=== PATIENT | male | born 1970 | race Caucasian/White ===

== ENCOUNTER 2023-05-05 18:51 | Emergency (ER) | payer BC, SELFPAY ==
[2023-05-05 19:00] VITALS: BP 168/93; PULSE 86; RESP 18; TEMP 36.8; O2SAT 97
--- NOTE | 2023-05-05 19:15 | ED.URI ---
HPI - URI/Sore Throat General Chief Complaint: Dizziness Stated Complaint: Dizziness,Sore Throat,Upset Stomach Time Seen by Provider: 05/05/23 19:15 Source: patient Mode of arrival: ambulatory Limitations: no limitations History of Present Illness HPI Narrative: 53-year-old male with history of prediabetes, hypertension, thoracic aortic aneurysm and obstructive sleep apnea presented for complaint of nausea and dizziness today. Endorses the dizziness is worse with moving his head, and feels off balance with walking. Describes the dizziness as room spinning sensation. He denies a sensation that is going to pass out. Endorses sore throat, sinus congestion and drainage for at least 2 weeks. He denies associated chest pain, palpitations, shortness of breath or chest tightness, vomiting, diarrhea, fevers or chills. Took an antiemetic prior to arrival, reports it is starting to wear off but did improve symptoms temporarily. Did not take bp meds or eaten today due to nausea. Of note, pt's father last night. Related Data Home Medications Medication Instructions Recorded Confirmed aspirin 81 mg tablet,delayed 81 mg PO DAILY 05/13/22 03/10/23 release (Adult Low Dose Aspirin) cholecalciferol (vitamin D3) 50 50 mcg PO DAILY 05/13/22 05/05/23 mcg (2,000 unit) capsule fluticasone propionate 50 2 spray intranasal DAILY 05/13/22 05/05/23 mcg/actuation nasal spray,suspension syringe with needle 3 mL 25 gauge 05/05/23 05/05/23 x 1 (BD Luer-Melanie Syringe) Allergies Allergy/AdvReac Type Severity Reaction Status Date / Time No Known Allergies Allergy Unverified 03/10/23 10:31 Review of Systems Review of Systems: CONSTITUTIONAL: Denies body aches, fever, chills, or sweats. EYES: Denies visual changes, redness, or discharge. ENT: reports rhinorrhea, congestion, sore throat, denies otalgia. CARDIOVASCULAR: Denies chest pain, palpitations, or edema. RESPIRATORY: Denies cough or dyspnea. GASTROINTESTINAL: Reports nausea and decreased appetite denies abdominal pain, vomiting, or diarrhea. GENITOURINARY: Denies dysuria or hematuria. SKIN: Denies rash, itching, or wounds. MUSCULOSKELETAL: Denies back pain, joint pain, or myalgia. NEUROLOGIC: Reports dizziness denies headache, numbness, tingling, or weakness. All systems reviewed & are unremarkable except as noted in HPI and below PMFSH Past Medical History Medical History (Updated 05/05/23 @ 19:45 by Candida Cortez APRN) Allergies Colon polyps tubular adenoma Dyslipidemia Hx of nephrolithotomy with removal of calculi Hypertension Hypogonadism in male ROSARIO (obstructive sleep apnea) Prediabetes Thoracic aortic aneurysm 4.3 x 4.3 cm Surgical History Surgical History History of colonoscopy Family History Family History Mother Breast cancer Diabetes mellitus Father Hypertension Social History Social History Smoking status: Never smoker Alcohol intake: current Substance use: never Lack of Transportation: No Lack of Food: Never True Current Housing: I Have Housing Concerned About Future Housing: No Difficulty Paying Gas/Electric Bills: No Difficulty Paying for Meds: No Currently Unemployed: No Education: Associate Degree Living arrangements: with family Occupation/Education: occupation Additional occupation/education comments: cadd technician Agree to blood products: Yes Comments At time of signature, I have reviewed and agree with nursing past medical, surgical, social and family history unless otherwise noted. Please see nursing chart for further information. There is no relevant family history pertinent to the presenting complaint Exam Narrative: GENERAL: Well-appearing, and in no acute distress. HEAD: Normocephalic, atraumatic. EYES
--- NOTE | 2023-05-05 19:26 | ECG_ITS ---
Measurements Intervals [place] Rate: 87 P: 33 [place]: 167 QRS: 31 QRSD: 92 T: 28 QT: 334 QTc: 403 Interpretive Statements SINUS RHYTHM NORMAL ELECTROCARDIOGRAM NO PREVIOUS ECG AVAILABLE FOR COMPARISON Electronically Signed On 05-06-2023 7:41:55 CDT by Abdelrahman Sloan M.D.
== END 2023-05-05 19:58 | disposition home or self-care (01) ==
PROVIDERS: Emergency Provider Nurse Practitioner Family; PCP Family Medicine
DX: H81.10 Benign paroxysmal vertigo, unspecified ear (principal); J06.9 Acute upper respiratory infection, unspecified; E78.5 Hyperlipidemia, unspecified; I10 Essential (primary) hypertension; R73.03 Prediabetes; Z79.82 Long term (current) use of aspirin
CPT/HCPCS: 93005; 99213; G0463

== ENCOUNTER 2024-09-20 09:39 | Observation (INO) | payer BC, SELFPAY ==
--- NOTE | ~2024-09-20 | XR_ITS ---
EXAMINATION: XR retrograde pyelo w/stent RT DATE: 09/21/2024 11:02 INDICATION: Cystoscopy and right retrograde pyelogram. TECHNIQUE: 4 fluoroscopic images of the abdomen and pelvis were obtained during procedure performed christ Lee. Radiologist was not present for the imaging or procedure. The amount of fluoroscopy t noel used during this procedure was 0.2 minutes. Total DAP was 0.462 mGym^2 COMPARISON: None. FINDINGS: Images demonstrate cannulation and retrograde contrast injection into the right ureter and advancemen t of a wire into the upper pole calyx of the right kidney. Final image demonstrates a right internal ureteral stent the proximal tip of which is difficult to distinguish due to the injected contrast. IMPRESSION: 1. Fluoroscopy utilized for right retrograde pyelogram and internal ureteral stent placement. See pro cedure note for further detail. Reviewed, dictated and finalized at location B. NT PROFESSIONAL IMPRESSION: 1. Fluoroscopy utilized for right retrograde pyelogram and internal ureteral st ent placement. See procedure note for further detail.
--- NOTE | ~2024-09-20 | CT_ITS ---
CLINICAL INDICATION: Right flank pain COMPARISON: 08/10/2016. TECHNIQUE: Multiple contiguous axial images of the abdomen and pelvis were performed without the admi nistration of intravenous contrast The dose-length product (DLP) was 1631.35 mGy-cm. Automated exposure control and iterative reconstruction technique were employed. FINDINGS/OBSERVATIONS: Visualized lower thorax: Calcified granuloma within the right lung base. 4 mm nodule within the left lower lobe, unchanged from 2016. The remainder of the bilateral lung bases are otherwise clear. The heart is of normal size, without pericardial effusion. Liver: The liver demonstrates homogeneous attenuation and is enlarged measuring 22 cm in longitudinal dimens ion. Gallbladder and biliary system: The gallbladder is only minimally distended, and otherwise unremarkable. Pancreas: Limited evaluation of the pancreas secondary to the lack of intravenous contrast. Spleen: The spleen demonstrates homogeneous attenuation and is not enlarged measuring 14 cm in longitudinal d imension. Kidneys: Right sided hydroureteronephrosis extending to the right ureterovesicular junction where a 5 mm stone is identified. 3 mm nonobstructing calculus within the right kidney. 5 mm nonobstructing calculus within the left kidney. Adrenal glands: Unremarkable. Gastrointestinal tract: Colonic diverticulosis without surrounding inflammatory change. Appendix: The air-filled appendix is of normal caliber (axial series, images 122 -135). Vasculature: Unremarkable. Lymph nodes: No pathologically enlarged or morphologically suspicious lymph nodes within the retroperitoneum or at the root of the mesentery. Pelvic structures: The bladder is only minimally distended, and otherwise unremarkable (except for the obstructing calcu henrik in the right UVJ). The prostate gland is not enlarged. Body wall and musculoskeletal: Small fat-containing umbilical hernia. Trace degenerative disease within the lower thoracic and lumbosacral spines with osteophyte formation and disc space narrowing. IMPRESSION: Mild right-sided hydroureteronephrosis secondary to a 5 mm stone at the right UVJ. Hepatosplenomegaly. Reviewed, dictated and finalized at location A. ER CURER IMPRESSION: Mild right-sided hydroureteronephrosis secondary to a 5 mm stone at the right U VJ. Hepatosplenomegaly.
--- NOTE | ~2024-09-20 | XR_ITS ---
CHEST RADIOGRAPH, PA AND LATERAL CLINICAL HISTORY: cough, CONGESTION . COMPARISON: None available TECHNIQUE: PA and lateral views of the chest. FINDINGS The cardiomediastinal silhouette is unremarkable. Calcified granuloma within the base, seen on lateral view. The remainder of the lungs are clear Visualized osseous structures and soft tissues are unremarkable. IMPRESSION: No focal infiltrate or effusion. Reviewed, dictated and finalized at location A. S MANAGER
[2024-09-20 10:08] VITALS: BP 167/94; PULSE 91; RESP 18; TEMP 37.6; O2SAT 98
--- NOTE | 2024-09-20 12:47 | ED.MALEGU ---
HPI - Male Genitourinary General Chief complaint: Urogenital-Male <Mary Luna PA-C - Last Filed: 09/20/24 12:49> Stated complaint: R KIDNEY STONE X7D <Mary Luna PA-C - Last Filed: 09/20/24 12:49> Time Seen by Provider: 09/20/24 13:37 <Mary Luna PA-C - Last Filed: 09/20/24 12:49> Focused HPI: 54-year-old male history of hyperlipidemia, gout, hypertension presents to the emergency department for right flank pain for 5 days. Patient states his symptoms started with cough, congestion, body aches, chills. Began developing pain in his right flank 5 days ago. He has a history kidney stones and is concerned he has a kidney stone. Reports history of fevers at home but is unsure if this is related to cold symptoms versus kidney stone. Denies dysuria or hematuria. His urologist is Dr. Lee. GENERAL: Well-appearing, well-nourished, and in no acute distress. HEAD: Normocephalic, atraumatic. CHEST: Clear to auscultation. ?No respiratory distress. HEART: Regular rate and rhythm.? NEURO: ?Alert and oriented x3. Patient screened in triage and initial orders placed.? ?Additional care and disposition to be based upon?diagnostic testing and treatment. <Mary Luna PA-C - Last Filed: 09/20/24 12:49> History of Present Illness HPI Narrative: Agree with HPI. Reports low-grade temp. No runny nose or sore throat or productive cough. Feels like previous stone. <Donnie Carrizales MD - Last Filed: 09/20/24 19:32> Related Data Home medications: Home Medications ?Medication ?Instructions ?Recorded ?Confirmed ?Last Taken ?Type aspirin 81 mg tablet,delayed 81 mg PO DAILY 05/13/22 10/28/23 Unknown History release (Adult Low Dose Aspirin) cholecalciferol (vitamin D3) 50 50 mcg PO DAILY 05/13/22 10/28/23 Unknown History mcg (2,000 unit) capsule fluticasone propionate 50 2 spray intranasal DAILY 05/13/22 10/28/23 Unknown History mcg/actuation nasal spray,suspension <Mary Luna PA-C - Last Filed: 09/20/24 12:49> Allergies/Adverse reactions: Allergies Allergy/AdvReac Type Severity Reaction Status Date / Time No Known Allergies Allergy Verified 09/20/24 09:40 <Mary Luna PA-C - Last Filed: 09/20/24 12:49> Review of Systems Review of Systems: All systems reviewed & are unremarkable except as noted in HPI and below <Donnie Carrizales MD - Last Filed: 09/20/24 19:32> Constitutional: Constitutional: Reports no additional constitutional complaints <Donnie Carrizales MD - Last Filed: 09/20/24 19:32> Cardiovascular: Cardiovascular: Reports no additional cardiovascular complaints <Donnie Carrizales MD - Last Filed: 09/20/24 19:32> Respiratory: Respiratory: Reports no additional respiratory complaints <Donnie Carrizales MD - Last Filed: 09/20/24 19:32> Gastrointestinal: Gastrointestinal: Reports no additional gastrointestinal complaints <Donnie Carrizales MD - Last Filed: 09/20/24 19:32> [facility] Past Medical History Medical History: Medical History Allergies Colon polyps tubular adenoma Dyslipidemia Hx of nephrolithotomy with removal of calculi Hypertension Hypogonadism in male ROSARIO (obstructive sleep apnea) Prediabetes Thoracic aortic aneurysm 4.3 x 4.3 cm <Mary Luna PA-C - Last Filed: 09/20/24 12:49> Surgical History Surgical History: Surgical History History of colonoscopy <Mary Luna PA-C - Last Filed: 09/20/24 12:49> Family History Family History: Family History Mother Breast cancer Diabetes mellitus Father Hypertension <Mary Luna PA-C - Last Filed: 09/20/24 12:49> Social History Social History: Social History Smoking status: Never smoker Alcohol intake: current Substance use: never Lack of Transportation: No Lack of Food: Never True Current Housing: I Have Housing Concerned About Future Housing: No Difficulty Paying Gas/Electric Bills: No Difficulty Paying for Meds: No Currently Unemployed: No Education: Associate Degree Living arrangements: with family Occupation/Education: occupation 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 HEAD: Normocephalic, atraumatic. ENT: Mucous membranes moist. NECK: Supple. CHEST: Clear to auscultation. No respiratory distress. HEART: Regular rate and rhythm. Normal peripheral pulses. ABDOMEN: Soft, nontender, nondistended. EXTREMITIES: Normal range of motion. No edema. SKIN: Warm, dry, no rash. NEURO: Alert and oriented x3. PSYCH: Normal mood and affect. <Donnie Carrizales MD - Last Filed: 09/20/24 19:32> Course Course Emergency Course: Resting comfortably. Has not passed the stone. Has received IV fluids pain medication. Patient with doubling of creatinine. Urology consulted. Admit for observation. NPO at midnight. He febrile and urine without infection. Flomax ordered. <Donnie Carrizales MD - Last Filed: 09/20/24 19:32> Vital Signs Vital signs: Vital Signs Temperature 99.7 F H 09/20/24 10:08 Pulse Rate 91 09/20/24 10:08 Respiratory Rate 18 09/20/24 10:08 Blood Pressure 167/94 H 09/20/24 10:08 Pulse Oximetry 98 09/20/24 10:08 Temperature 99.7 F H 09/20/24 10:08 Pulse Rate 79 09/20/24 19:25 Respiratory Rate 16 09/20/24 19:25 Blood Pressure 147/87 H 09/20/24 19:25 Pulse Oximetry 98 09/20/24 19:25 <Mary Luna PA-C - Last Filed: 09/20/24 12:49> Vital Signs Temperature 99.7 F H 09/20/24 10:08 Pulse Rate 91 09/20/24 10:08 Respiratory Rate 18 09/20/24 10:08 Blood Pressure 167/94 H 09/20/24 10:08 Pulse Oximetry 98 09/20/24 10:08 Temperature 99.7 F H 09/20/24 10:08 Pulse Rate 79 09/20/24 19:25 Respiratory Rate 16 09/20/24 19:25 Blood Pressure 147/87 H 09/20/24 19:25 Pulse Oximetry 98 09/20/24 19:25 <Donnie Carrizales MD - Last Filed: 09/20/24 19:32> MDM - Male Genitourinary Lab Data Result diagrams: 09/20/24 13:25 09/20/24 13:25 <Mary Luna PA-C - Last Filed: 09/20/24 12:49> Labs: Lab Results 09/20/24 Range/Units 13:25 WBC 10.8 H (4.5-10.0) K/mm3 RBC 6.00 (4.6-6.20) M/mm3 Hgb 16.3 (14.0-18.0) g/dL Hct 50.5 (42.0-52.0) % MCV 84.2 (80-100) fl MCH 27.2 (26-34) pg MCHC 32.3 (32-36) g/dl RDW 15.4 H (11.5-14.5) % Plt Count 249 (150-375) k/mm3 MPV 10.3 (7.4-10.4) fl Immature Gran % (Auto) 0.3 (0-0.5) % Neut % (Auto) 74.2 H (45.5-73.1) % Lymph % (Auto) 9.0 L (18.3-44.2) % [place] % (Auto) 12.7 H (2.6-8.5) % Eos % (Auto) 3.1 (0-4.4) % Baso % (Auto) 0.7 (0.2-1.2) % Lymph # (Auto) 0.97 (0.9-3.2) K/mm3 [place] # (Auto) 1.4 H (0.1-0.6) K/mm3 Eos # (Auto) 0.3 (0-0.3) K/mm3 Baso # (Auto) 0.1 (0.0-0.1) K/mm3 Abs Immat Gran (auto) 0.03 (0.00-0.031) K/mm3 Absolute Neuts (auto) 8.0 H (1.3-6.7) K/mm3 Absolute Nucleated RBC 0.000 (0.0-0.012) K/mm3 Nucleated RBC % 0.0 (0.0-0.2) % Sodium 141 (137-145) mmol/L Potassium 4.6 (3.4-5.0) mmol/L Chloride 110 H (98-107) mmol/L Carbon Dioxide 23 (22-30) mmol/L Anion Gap 8 (4-12) mmol/L BUN 24 H (9-20) mg/dL Creatinine 2.30 H (0.7-1.3) mg/dL Estim Creat Clear Calc 46 ml/min Estimated GFR 30 L (59 - ) Glucose 104 (65-110) mg/dL Calcium 9.5 (8.4-10.2) mg/dL Total Bilirubin 0.6 (0.2-1.3) mg/dL AST 39 (17-59) U/L ALT 70 H (6-50) U/L Alkaline Phosphatase 73 (38-126) U/L Total Protein 8.0 (6.3-8.2) g/dL Albumin 4.3 (3.5-5.1) g/dL Lipase 127 (23-300) U/L Urine Color Yellow (Yellow) Urine Appearance Clear (Clear) Urine pH 5.5 (5.0-9.0) Ur Specific [place] 1.017 (1.001-1.035) Urine Protein Negative (Negative) mg/dL Urine Glucose (UA) Negative (Negative) mg/dL Urine Ketones Negative (Negative) mg/dL Ur Blood (Man) 3+ H (Negative) Urine Nitrate Negative (Negative) Urine Bilirubin Negative (Negative) Urine Urobilinogen 0.2 (<2.0) mg/dL Leukocyte Esterase Rfl Trace H (Negative) LD/UL Urine RBC 21-50 H (0-2) /hpf Urine WBC 0-5 (0-3) /hpf Ur Squamous Epith Cells None seen (Few) /hpf Urine Bacteria None seen /hpf Urine Casts 3-5 Influenza A (RT-PCR) Negative (Negative) Influenza B (RT-PCR) Negative (Negative) RSV (RT-PCR) Negative (Negative) SARS-CoV-2 RNA (RT-PCR) Negative (Negative) <Mary Luna PA-C - Last Filed: 09/20/24 12:49> Lab Results 09/20/24 Range/Units 13:25 WBC 10.8 H (4.5-10.0) K/mm3 RBC 6.00 (4.6-6.20) M/mm3 Hgb 16.3 (14.0-18.0) g/dL Hct 50.5 (42.0-52.0) % MCV 84.2 (80-100) fl MCH 27.2 (26-34) pg MCHC 32.3 (32-36) g/dl RDW 15.4 H (11.5-14.5) % Plt Count 249 (150-375) k/mm3 MPV 10.3 (7.4-10.4) fl Immature Gran % (Auto) 0.3 (0-0.5) % Neut % (Auto) 74.2 H (45.5-73.1) % Lymph % (Auto) 9.0 L (18.3-44.2) % [place] % (Auto) 12.7 H (2.6-8.5) % Eos % (Auto) 3.1 (0-4.4) % Baso % (Auto) 0.7 (0.2-1.2) % Lymph # (Auto) 0.97 (0.9-3.2) K/mm3 [place] # (Auto) 1.4 H (0.1-0.6) K/mm3 Eos # (Auto) 0.3 (0-0.3) K/mm3 Baso # (Auto) 0.1 (0.0-0.1) K/mm3 Abs Immat Gran (auto) 0.03 (0.00-0.031) K/mm3 Absolute Neuts (auto) 8.0 H (1.3-6.7) K/mm3 Absolute Nucleated RBC 0.000 (0.0-0.012) K/mm3 Nucleated RBC % 0.0 (0.0-0.2) % Sodium 141 (137-145) mmol/L Potassium 4.6 (3.4-5.0) mmol/L Chloride 110 H (98-107) mmol/L Carbon Dioxide 23 (22-30) mmol/L Anion Gap 8 (4-12) mmol/L BUN 24 H (9-20) mg/dL Creatinine 2.30 H (0.7-1.3) mg/dL Estim Creat Clear Calc 46 ml/min Estimated GFR 30 L (59 - ) Glucose 104 (65-110) mg/dL Calcium 9.5 (8.4-10.2) mg/dL Total Bilirubin 0.6 (0.2-1.3) mg/dL AST 39 (17-59) U/L ALT 70 H (6-50) U/L Alkaline Phosphatase 73 (38-126) U/L Total Protein 8.0 (6.3-8.2) g/dL Albumin 4.3 (3.5-5.1) g/dL Lipase 127 (23-300) U/L Urine Color Yellow (Yellow) Urine Appearance Clear (Clear) Urine pH 5.5 (5.0-9.0) Ur Specific [place] 1.017 (1.001-1.035) Urine Protein Negative (Negative) mg/dL Urine Glucose (UA) Negative (Negative) mg/dL Urine Ketones Negative (Negative) mg/dL Ur Blood (Man) 3+ H (Negative) Urine Nitrate Negative (Negative) Urine Bilirubin Negative (Negative) Urine Urobilinogen 0.2 (<2.0) mg/dL Leukocyte Esterase Rfl Trace H (Negative) LD/UL Urine RBC 21-50 H (0-2) /hpf Urine WBC 0-5 (0-3) /hpf Ur Squamous Epith Cells None seen (Few) /hpf Urine Bacteria None seen /hpf Urine Casts 3-5 Influenza A (RT-PCR) Negative (Negative) Influenza B (RT-PCR) Negative (Negative) RSV (RT-PCR) Negative (Negative) SARS-CoV-2 RNA (RT-PCR) Negative (Negative) <Donnie Carrizales MD - Last Filed: 09/20/24 19:32> Imaging Data Radiologist's impression: ITS Impressions Abdomen/Pelvis CT 09/20/24 13:08 IMPRESSION: Mild right-sided hydroureteronephrosis secondary to a 5 mm stone at the right UVJ. Hepatosplenomegaly. Chest X-Ray 09/20/24 13:22 IMPRESSION: No focal infiltrate or effusion. <Donnie Carrizales MD - Last Filed: 09/20/24 19:32> Discharge Plan Discharge Clinical Impression: Ureterolithiasis <Mary Luna PA-C - Last Filed: 09/20/24 12:49> Patient Disposition: Still a Patient <Mary Luna PA-C - Last Filed: 09/20/24 12:49> Condition: Stable <Mary Luna PA-C - Last Filed: 09/20/24 12:49>
[2024-09-20] MEDS: ACETAMINOPHEN 500 MG TABLET 1000 MG PO (13:17)
[2024-09-20 13:34] LABS: Basophils Absolute Auto 0.1 K/mm3 (0.0-0.1); Basophils Percent Auto 0.7 % (0.2-1.2); Eosinophils Absolute Auto 0.3 K/mm3 (0-0.3); Eosinophils Percent Auto 3.1 % (0-4.4); Hematocrit 50.5 % (42.0-52.0); Hemoglobin 16.3 g/dL (14.0-18.0); Immature Granulocyte Absolute 0.03 K/mm3 (0.00-0.031); Immature Granulocyte Percent A 0.3 % (0-0.5); Lymphocytes Absolute Auto 0.97 K/mm3 (0.9-3.2); Mean Corpuscular HGB Conc 32.3 g/dl (32-36); Mean Corpuscular Hemoglobin 27.2 pg (26-34); Mean Corpuscular Volume 84.2 fl (80-100); Mean Platelet Volume 10.3 fl (7.4-10.4); Monocytes Absolute Auto 1.4 K/mm3 (0.1-0.6); Monocytes Percent Auto 12.7 % (2.6-8.5); Neutrophils Percent Auto 74.2 % (45.5-73.1); Platelet Count Result 249 k/mm3 (150-375); Red Cell Distribution Width 15.4 % (11.5-14.5); White Blood Count 10.8 K/mm3 (4.5-10.0)
[2024-09-20 13:40] LABS: Add Urine Microscopic? YES; Appearance Urine Clear (Clear); Bacteria Urine None Seen /hpf; Bilirubin Urine Negative (Negative); Blood Urine 3+ (Negative); Color Urine Yellow (Yellow); Glucose Urine UA Negative (Negative); Ketones Urine Negative (Negative); Leukocyte Esterase Ur Trace LEU/UL (Negative); Nitrate Urine Negative (Negative); Protein Urine Negative (Negative); RBC Urine 21-50 /hpf (0-2); Specific Grav Ur 1.017 (1.001-1.035); Squamous Epithelial Cell Urine None Seen /hpf (Few); Urobilinogen Urine 0.2 mg/dL (<2.0); WBC Urine 0-5 /hpf (0-3); pH Urine 5.5 (5.0-9.0)
[2024-09-20 13:43] LABS: Alanine Aminotransferase 70 U/L (6-50); Albumin Level 4.3 g/dL (3.5-5.1); Alkaline Phosphatase 73 U/L (38-126); Anion Gap 8 mmol/L (4-12); Aspartate Amino Transferase 39 U/L (17-59); Bilirubin,Total 0.6 mg/dL (0.2-1.3); Blood Urea Nitrogen 24 mg/dL (9-20); Calcium 9.5 mg/dL (8.4-10.2); Carbon Dioxide 23 mmol/L (22-30); Chloride 110 mmol/L (98-107); Estimated CRCL calculation 46 ml/min; Estimated Glomerular Filt Rate 30; Glucose 104 mg/dL (65-110); Lipase 127 U/L (23-300); Potassium 4.6 mmol/L (3.4-5.0); Sodium 141 mmol/L (137-145)
[2024-09-20] MEDS: SODIUM CHLORIDE 0.9% IV 1,000 ML 999 ML IV CONT (13:50)
[2024-09-20] MEDS: KETOROLAC 30 MG/ML VIAL (*BKC) IV PUSH (13:50)
[2024-09-20 13:53] VITALS: BP 120/77; PULSE 85; RESP 20; O2SAT 97
[2024-09-20 14:09] LABS: Influenza A QL RT-PCR Negative (Negative); Influenza B QL RT-PCR Negative (Negative); RSV RNA, RT-PCR Negative (Negative); SARS-CoV-2 RNA PCR Negative (Negative)
[2024-09-20 17:25] VITALS: BP 127/87; PULSE 80; RESP 16; O2SAT 96
[2024-09-20] MEDS: TAMSULOSIN HCL 0.4 MG CAPSULE PO (17:27)
--- NOTE | 2024-09-20 18:33 | PC.NURSE ---
Pt. reports 0/10 pain and no nausea. No PRN needed at this time.
[2024-09-20 19:25] VITALS: BP 147/87; PULSE 79; RESP 16; O2SAT 98
[2024-09-20] MEDS: SODIUM CHLORIDE 0.9% IV 1,000 ML 125 ML IV CONT (19:26)
--- NOTE | 2024-09-20 20:52 | P.HP_ITS ---
H&P: HPI History of Present Illness Date/Time: 09/20/24 20:52 Chief Complaint: Right flank pain Narrative: This is a 54-year-old male with significant past medical history of thoracic aortic aneurysm, hypertension, dyslipidemia, ROSARIO, history of kidney stones who presented to the hospital with complaints of right flank pain. Patient states that his right flank pain started last Tuesday any tried treating it at home with Tylenol and naproxen however the pain worsened over the past few days. He denies any nausea, vomiting, diarrhea, abdominal pain, chest pain, shortness a breath. He was reporting low-grade fevers and chills at home with associated right flank pain. He presents for further workup. Workup in the hospital included an abdomen pelvis CT which showed mild right-sided hydroureteronephrosis secondary to a 5 mm stone at the right UVJ, hepatosplenomegaly. Chest x-ray was negative for infiltrate or effusion. Initial labs showed a white blood cell count of 10.8, creatinine 2.30, EGFR 30, ALT 70, lipase was normal at 127. UA was obtained and showed 3+ urine blood, trace leukocyte, 21-50 urine RBC, otherwise negative. Respiratory panel was negative for influenza a and B, RSV, COVID. EKG showing NSR with a rate of 87, QTc 403. Review of Systems Review of Systems: All systems reviewed & are unremarkable except as noted in HPI and below Constitutional: Constitutional: Reports as per HPI and Reports no additional constitutional complaints Eyes: Eyes: Reports as per HPI and Reports no additional eye complaints ENT: Reports system reviewed and no additional complaints, except as documented and Reports as per HPI Cardiovascular: Cardiovascular: Reports as per HPI and Reports no additional cardiovascular complaints Respiratory: Respiratory: Reports as per HPI and Reports no additional respiratory complaints Gastrointestinal: Gastrointestinal: Reports as per HPI and Reports no additional gastrointestinal complaints Genitourinary: Genitourinary: Reports no additional male genitourinary complaints and Reports as per HPI Musculoskeletal: Musculoskeletal: Reports no additional musculoskeletal complaints and Reports as per HPI Integumentary/Breasts: Skin/Breast: Reports system reviewed and no additional complaints, except as docu and Reports as per HPI Neurologic: Reports system reviewed and no additional complaints, except as documented and Reports as per HPI Psychiatric: Psychiatric: Reports no additional psychiatric complaints and Reports as per HPI [facility] Past Medical History Medical History Colon polyps tubular adenoma Prediabetes Hypogonadism in male Thoracic aortic aneurysm 4.3 x 4.3 cm Hypertension Dyslipidemia ROSARIO (obstructive sleep apnea) Allergies Hx of nephrolithotomy with removal of calculi Surgical History Surgical History History of colonoscopy Family History Family History Mother Breast cancer Diabetes mellitus Father Hypertension Social History Social History Smoking status: Never smoker Alcohol intake: current Drinks per week: 1 Substance use: never Do You Feel Safe in your Home?: Yes Lack of Transportation: No Lack of Food: Never True Current Housing: I Have Housing Concerned About Future Housing: No Difficulty Paying Gas/Electric Bills: No Difficulty Paying for Meds: No Currently Unemployed: No Education: Associate Degree Difficulty w/ Childcare or Family Care: No Living arrangements: with family Occupation/Education: occupation Additional occupation/education comments: [id number] Spiritual care concerns: No Agree to blood products: Yes Meds Home Medications and Allergies Home Medications ?Medication ?Instructions ?Recorded ?Confirmed ?Type aspirin 81 mg tablet,delayed 81 mg PO DAILY 05/13/22 09/20/24 History release (Adult Low Dose Aspirin) cholecalciferol (vitamin D3) 50 50 mcg PO DAILY 05/13/22 09/20/24 History mcg (2,000 unit) capsule fluticasone propionate 50 2 spray intranasal DAILY 05/13/22 09/20/24 History mcg/actuation nasal spray,suspension allopurinol 300 mg tablet 300 mg PO DAILY #90 tabs 03/23/24 09/20/24 Rx atorvastatin 20 mg tablet 20 mg PO DAILY #90 tabs 04/09/24 09/20/24 Rx metoprolol tartrate 25 mg tablet See Rx Instructions .Route 06/14/24 09/20/24 Rx .COMPLEX #180 tabs lisinopril 40 mg tablet See Rx Instructions .Route 06/15/24 09/20/24 Rx .COMPLEX #90 tabs fenofibrate micronized 134 mg 134 mg PO DAILY #90 caps 06/22/24 09/20/24 Rx capsule needle (disp) 18 G 18 gauge x 1 #4 ea 09/04/24 09/20/24 Rx 1/2 (BD Regular Bevel [place]) testosterone cypionate 200 mg/mL 200 mg IM WEEKLY #3 mL 09/13/24 09/20/24 Rx intramuscular oil cetirizine 10 mg tablet (24Hour 10 mg PO DAILY PRN allergy symptoms 09/20/24 09/20/24 History Allergy) Allergies Allergy/AdvReac Type Severity Reaction Status Date / Time No Known Allergies Allergy Verified 09/20/24 09:40 Vital Signs Vital Signs - 24 hr 09/20/24 10:08 09/20/24 13:53 09/20/24 17:25 Temperature 99.7 F H Pulse Rate 91 85 80 Respiratory Rate 18 20 16 Blood Pressure 167/94 H 120/77 127/87 Pulse Oximetry 98 97 96 09/20/24 19:25 Temperature Pulse Rate 79 Respiratory Rate 16 Blood Pressure 147/87 H Pulse Oximetry 98 Exam Narrative: General: In no acute distress, well nourished Head: atraumatic, no encephalopathy Eyes: PERRLA, sclera clear ENT: moist mucous membranes, nasal passages clear Neck: supple, no JVD, no adenopathy, trachea midline Cardiac: Normal S1 and S2. No murmur, gallops or friction rubs, peripheral pulses intact. Respiratory: Lungs clear to auscultation, no adventitious lung sounds, currently on room air Gastrointestinal: soft, non-distended, non-tender, normoactive bowel sounds. : voiding without difficulty. Extremities: moves all extremities well, no edema, good ROM, strength 5/5 Skin: clean, dry, intact. No wounds or lesions. Neuro: Alert and oriented x4, cranial nerves intact, no neuro deficits. Psych: normal mood, normal affect, interactive H&P: Results Labs Labs: Short CBC 09/20/24 Range/Units 13:25 WBC 10.8 H (4.5-10.0) K/mm3 Hgb 16.3 (14.0-18.0) g/dL Hct 50.5 (42.0-52.0) % Plt Count 249 (150-375) k/mm3 BMP 09/20/24 13:25 Sodium 141 Potassium 4.6 Chloride 110 H Carbon Dioxide 23 BUN 24 H Creatinine 2.30 H Glucose 104 Calcium 9.5 Liver Function 09/20/24 Range/Units 13:25 Total Bilirubin 0.6 (0.2-1.3) mg/dL AST 39 (17-59) U/L ALT 70 H (6-50) U/L Alkaline Phosphatase 73 (38-126) U/L Albumin 4.3 (3.5-5.1) g/dL Urine 09/20/24 Range/Units 13:25 Urine Color Yellow (Yellow) Urine Appearance Clear (Clear) Urine pH 5.5 (5.0-9.0) Ur Specific [place] 1.017 (1.001-1.035) Urine Protein Negative (Negative) mg/dL Urine Glucose (UA) Negative (Negative) mg/dL Imaging Chest x-ray: Radiologist's impression: CHEST RADIOGRAPH, PA AND LATERAL CLINICAL HISTORY: cough, CONGESTION . COMPARISON: None available TECHNIQUE: PA and lateral views of the chest. FINDINGS The cardiomediastinal silhouette is unremarkable. Calcified granuloma within the base, seen on lateral view. The remainder of the lungs are clear Visualized osseous structures and soft tissues are unremarkable. IMPRESSION: No focal infiltrate or effusion. Reviewed, dictated and finalized at location A. SUPERINTENDENT Please be advised this is a medical document. It is intended for [id number] communication. It is written in medical language and may contain unfamiliar ab breviations or verbiage. Medical documents are intended to carry relevant information, facts as evident, and the clinical opinion of the practitioner at the time of the encounter. This report may have been done utilizing a voice recognition system. Attempts have been made to correct errors. However, there may be uncorrected grammatical, spelling, and recognition errors present. The file time of this note does not necessarily represent the time the patient was seen. Dictated By: Tierra Bright MD 09/20/24 1322 Signed By: <Electronically signed by Tierra Bright MD in [place]> Abdomen/pelvis CT: Radiologist's impression: CLINICAL INDICATION: Right flank pain COMPARISON: 08/10/2016. TECHNIQUE: Multiple contiguous axial images of the abdomen and pelvis were performed without the administration of intravenous contrast The dose-length product (DLP) was 1631.35 mGy-cm. Automated exposure control and iterative reconstruction technique were employed. FINDINGS/OBSERVATIONS: Visualized lower thorax: Calcified granuloma within the right lung base. 4 mm nodule within the left lower lobe, unchanged from 2016. The remainder of the bilateral lung bases are otherwise clear. The heart is of normal size, without pericardial effusion. Liver: The liver demonstrates homogeneous attenuation and is enlarged measuring 22 cm in longitudinal dimension. Gallbladder and biliary system: The gallbladder is only minimally distended, and otherwise unremarkable. Pancreas: Limited evaluation of the pancreas secondary to the lack of intravenous contrast. Spleen: The spleen demonstrates homogeneous attenuation and is not enlarged measuring 14 cm in longitudinal dimension. Kidneys: Right sided hydroureteronephrosis extending to the right ureterovesicular junction where a 5 mm stone is identified. 3 mm nonobstructing calculus within the right kidney. 5 mm nonobstructing calculus within the left kidney. Adrenal glands: Unremarkable. Gastrointestinal tract: Colonic diverticulosis without surrounding inflammatory change. Appendix: The air-filled appendix is of normal caliber (axial series, images 122 -135). Vasculature: Unremarkable. Lymph nodes: No pathologically enlarged or morphologically suspicious lymph nodes within the retroperitoneum or at the root of the mesentery. Pelvic structures: The bladder is only minimally distended, and otherwise unremarkable (except for the obstructing calculus in the right UVJ). The prostate gland is not enlarged. Body wall and musculoskeletal: Small fat-containing umbilical hernia. Trace degenerative disease within the lower thoracic and lumbosacral spines with osteophyte formation and disc space narrowing. IMPRESSION: Mild right-sided hydroureteronephrosis secondary to a 5 mm stone at the right UVJ. Hepatosplenomegaly. Reviewed, dictated and finalized at location A. SUPERINTENDENT Please be advised this is a medical document. It is intended for pakc-of-[id number] communication. It is written in medical language and may contain unfamiliar a bbreviations or verbiage. Medical documents are intended to carry relevant information, facts as evident, and the clinical opinion of the practitioner at the time of the encounter. This report may have been done utilizing a voice recognition system. Attempts have been made to correct errors. However, there may be uncorrected grammatical, spelling, and recognition errors present. The file time of this note does not necessarily represent the time the patient was seen. Dictated By: Tierra Bright MD 09/20/24 1308 Signed By: <Electronically signed by Tierra Bright MD in [place]> Assessment and Plan Assessment and plan (1) Ureterolithiasis: Code(s): N20.1 - Calculus of ureter Status: Acute Assessment and Plan: * Abdomen pelvis CT shown mild right-sided hydroureteronephrosis secondary to 5 mm stone at the right UVJ, hepatic splenomegaly * Urology consulted * Will make NPO after midnight for possible stent placement * Was given 1 L normal saline and tamsulosin along with Toradol and Tylenol in the ED. * Continue pain control (2) RONALDO (acute kidney injury): Code(s): N17.9 - Acute kidney failure, unspecified Status: Acute Assessment and Plan: * Creatinine 2.30, EGFR 30 * Baseline creatinine 1.37, EGFR greater than 60 * Likely secondary to obstructing stone * Continue to trend * Will hold lisinopril due to RONALDO * Avoid nephrotoxic medications * Avoid testing with IV contrast (3) Leukocytosis: Qualifiers: Leukocytosis type: unspecified Qualified Code(s): D72.829 - Elevated white blood cell count, unspecified Code(s): D72.829 - Elevated white blood cell count, unspecified Status: Acute Assessment and Plan: * White blood cell count 10.8 * Reporting fevers and chills at home, T-max here was 99.7 * UA showed 3+ urine blood, trace leukocytes, 21-50 urine RBC, otherwise negative. * Chest x-ray was negative for infiltrate or effusion * Will cover with Rocephin since he has been febrile (4) Hypertension: Code(s): I10 - Essential (primary) hypertension Status: Chronic Assessment and Plan: * Blood pressure ranging 127/87 to 167/94 * Will hold lisinopril due to RONALDO * Continue metoprolol (5) Thoracic aortic aneurysm: Code(s): I71.2 - Thoracic aortic aneurysm, without rupture Status: Chronic Assessment and Plan: * Ascending aortic dilatation 4.3 x 4.4 cm noted on 07/12/2023 outside hospital CTA of chest * Avoid fluoroquinolones (6) Dyslipidemia: Code(s): E78.5 - Hyperlipidemia, unspecified Status: Chronic Assessment and Plan: * Continue aspirin, fenofibrate, and atorvastatin Quality VTE Prophylaxis VTE prophylaxis: mechanical ordered Hospitalist MIPS Advance Care Plan I have confirmed that the patient's Advanced Care Plan is present, code status is documented, or surrogate decision maker is listed in patient medical record.: Yes Medication Reconciliation I have utilized all available resources to obtain, update and review the patients current medications (includes all prescriptions, OTC, herbals, cannabis, and nutritional supplements).: Yes
[2024-09-20 21:28] VITALS: BMI 43.0
[2024-09-20 22:00] VITALS: BP 160/88; PULSE 78; RESP 18; TEMP 36.4; O2SAT 98
[2024-09-20] MEDS: WATER FOR IRRIGATION, STERILE 500 ML BOTTLE (23:57)
[2024-09-21] VITALS (8 sets, daily range): BP systolic 92–160; BP diastolic 54–98; PULSE 87–97; RESP 18–25; TEMP 36.4–36.6; O2SAT 94–98
[2024-09-21] MEDS: SODIUM CHLORIDE 0.9% IV 1,000 ML 125 ML IV CONT (03:00)
[2024-09-21 08:13] LABS: Basophils Absolute Auto 0.1 K/mm3 (0.0-0.1); Basophils Percent Auto 0.8 % (0.2-1.2); Eosinophils Absolute Auto 0.3 K/mm3 (0-0.3); Eosinophils Percent Auto 4.3 % (0-4.4); Hematocrit 45.8 % (42.0-52.0); Hemoglobin 14.8 g/dL (14.0-18.0); Immature Granulocyte Absolute 0.02 K/mm3 (0.00-0.031); Immature Granulocyte Percent A 0.3 % (0-0.5); Lymphocytes Absolute Auto 1.06 K/mm3 (0.9-3.2); Lymphocytes Percent Auto 17.3 % (18.3-44.2); Mean Corpuscular HGB Conc 32.3 g/dl (32-36); Mean Corpuscular Hemoglobin 27.1 pg (26-34); Mean Corpuscular Volume 83.7 fl (80-100); Mean Platelet Volume 10.1 fl (7.4-10.4); Monocytes Absolute Auto 0.8 K/mm3 (0.1-0.6); Monocytes Percent Auto 13.6 % (2.6-8.5); Neutrophils Absolute Auto 3.9 K/mm3 (1.3-6.7); Neutrophils Percent Auto 63.7 % (45.5-73.1); Platelet Count Result 202 k/mm3 (150-375); Red Blood Count 5.47 M/mm3 (4.6-6.20); Red Cell Distribution Width 15.1 % (11.5-14.5); White Blood Count 6.1 K/mm3 (4.5-10.0)
[2024-09-21 08:24] LABS: Alanine Aminotransferase 53 U/L (6-50); Albumin Level 3.8 g/dL (3.5-5.1); Alkaline Phosphatase 60 U/L (38-126); Anion Gap 6 mmol/L (4-12); Aspartate Amino Transferase 34 U/L (17-59); Bilirubin,Total 0.5 mg/dL (0.2-1.3); Blood Urea Nitrogen 24 mg/dL (9-20); Calcium 8.9 mg/dL (8.4-10.2); Carbon Dioxide 22 mmol/L (22-30); Chloride 112 mmol/L (98-107); Estimated CRCL calculation 58 ml/min; Estimated Glomerular Filt Rate 39; Glucose 102 mg/dL (65-110); Potassium 4.4 mmol/L (3.4-5.0); Sodium 140 mmol/L (137-145)
--- NOTE | 2024-09-21 08:33 | P.CONUR_ITS ---
Assessment and Plan Assessment and plan (1) Ureterolithiasis: Code(s): N20.1 - Calculus of ureter Status: Acute (2) Hydronephrosis: Code(s): N13.30 - Unspecified hydronephrosis Status: Acute (3) RONALDO (acute kidney injury): Code(s): N17.9 - Acute kidney failure, unspecified Status: Acute Plan 54yoM admitted with obstructing 5mm stone at the right UVJ with mild hydronephrosis, RONALDO, poor pain control - Keep NPO for cystoscopy, ureteral stent, possible URS with Dr. Lee in the OR this morning - UA reviewed, low suspicion for UTI - Agree with daily tamsulosin, strain all urine - Renal function improving with IV fluids alone, Cr 1.8 from 2.3 overnight - Rest of management per primary team Urology Consult Note HPI Date Seen: 09/21/24 Requesting Physician: Hiram Calderón MD Primary Care Provider: Heydi Chand PA-C Consult Narrative Narrative: Kiran Haley is a 54 year old male admitted 09/20/24 for right flank pain with nausea r/t an obstructing 5mm stone at the right UVJ with mild hydronephrosis identified on CT. UA reviewed -- Low suspicion for UTI. Symptom onset 6 days ago, unrelieved with Tylenol/NSAIDs. He has a history of stones treated with ureteroscopy/st[place] [address] Lee and spontaneous passage in 2013. Takes daily ASA 81mg. Nonsmoker. No family history of stones. He has been NPO overnight for planned intervention in the OR this afternoon with Dr. Lee. PERTINENT LABS: 09/21/24 - WBC 6.1 FROM 10.8, HGB 14.8, Cr 1.8 from 2.3 (baseline 1.3) 09/20/24 UA - Trace LE, 3+ blood, 21-50 RBC, <5 WBC PERTINENT IMAGIN09/20/24 CT AP WO CON - Kidneys: Right sided hydroureteronephrosis extending to the right ureterovesicular junction where a 5 mm stone is identified. 3 mm nonobstructing calculus within the right kidney. 5 mm nonobstructing calculus within the left kidney. Pelvic structures: The bladder is only minimally distended, and otherwise unremarkable (except for the obstructing calculus in the right UVJ). The prostate gland is not enlarged. Review of Systems 2 Constitutional: Constitutional: Reports no additional constitutional complaints Eyes: Eyes: Reports no additional eye complaints ENT: Reports Normal hearing present Cardiovascular: Cardiovascular: Reports no additional cardiovascular complaints Respiratory: Respiratory: Reports no additional respiratory complaints Gastrointestinal: Gastrointestinal: Reports abdominal pain (RLQ) Genitourinary: Genitourinary: Reports flank pain Comments: Right Musculoskeletal: Musculoskeletal: Reports no additional musculoskeletal complaints Neurologic: Reports system reviewed and no additional complaints, except as documented Psychiatric: Psychiatric: Reports no additional psychiatric complaints [facility] Past Medical History Medical History Colon polyps tubular adenoma Prediabetes Hypogonadism in male Thoracic aortic aneurysm 4.3 x 4.3 cm Hypertension Dyslipidemia ROSARIO (obstructive sleep apnea) Allergies Hx of nephrolithotomy with removal of calculi Surgical History Surgical History History of colonoscopy Family History Family History Mother Breast cancer Diabetes mellitus Father Hypertension Social History Social History Smoking status: Never smoker Alcohol intake: current Drinks per week: 1 Substance use: never Do You Feel Safe in your Home?: Yes Lack of Transportation: No Lack of Food: Never True Current Housing: I Have Housing Concerned About Future Housing: No Difficulty Paying Gas/Electric Bills: No Difficulty Paying for Meds: No Currently Unemployed: No Education: Associate Degree Difficulty w/ Childcare or Family Care: No Living arrangements: with family Occupation/Education: occupation Additional occupation/education comments: [employer] Spiritual care concerns: No Agree to blood products: Yes Meds Home Medications and Allergies Home Medications ?Medication ?Instructions ?Recorded ?Confirmed ?Type aspirin 81 mg tablet,delayed 81 mg PO DAILY 05/13/22 09/20/24 History release (Adult Low Dose Aspirin) cholecalciferol (vitamin D3) 50 50 mcg PO DAILY 05/13/22 09/20/24 History mcg (2,000 unit) capsule fluticasone propionate 50 2 spray intranasal DAILY 05/13/22 09/20/24 History mcg/actuation nasal spray,suspension allopurinol 300 mg tablet 300 mg PO DAILY #90 tabs 03/23/24 09/20/24 Rx atorvastatin 20 mg tablet 20 mg PO DAILY #90 tabs 04/09/24 09/20/24 Rx metoprolol tartrate 25 mg tablet See Rx Instructions .Route 06/14/24 09/20/24 Rx .COMPLEX #180 tabs lisinopril 40 mg tablet See Rx Instructions .Route 06/15/24 09/20/24 Rx .COMPLEX #90 tabs fenofibrate micronized 134 mg 134 mg PO DAILY #90 caps 06/22/24 09/20/24 Rx capsule needle (disp) 18 G 18 gauge x 1 #4 ea 09/04/24 09/20/24 Rx 1/2 (BD Regular Bevel [place]) testosterone cypionate 200 mg/mL 200 mg IM WEEKLY #3 mL 09/13/24 09/20/24 Rx intramuscular oil cetirizine 10 mg tablet (24Hour 10 mg PO DAILY PRN allergy symptoms 09/20/24 09/20/24 History Allergy) Allergies Allergy/AdvReac Type Severity Reaction Status Date / Time No Known Allergies Allergy Verified 09/20/24 09:40 Vital Signs Vital Signs - 24 hr 09/20/24 10:08 09/20/24 13:53 09/20/24 17:25 Temperature 99.7 F H Pulse Rate 91 85 80 Respiratory Rate 18 20 16 Blood Pressure 167/94 H 120/77 127/87 Pulse Oximetry 98 97 96 Oxygen Delivery 09/20/24 19:25 09/20/24 22:00 09/20/24 23:39 Temperature 97.5 F L Pulse Rate 79 78 Respiratory Rate 16 18 Blood Pressure 147/87 H 160/88 H Pulse Oximetry 98 98 Oxygen Delivery Room Air 09/21/24 01:40 09/21/24 06:00 Temperature 97.6 F Pulse Rate 87 Respiratory Rate 20 20 Blood Pressure 136/81 Pulse Oximetry 98 Oxygen Delivery Autopap Exam 2 Const: General: comfortable and no acute distress HENMT: Face/Nose/Sinus: Normal nares present Eyes: General: appearance normal, both eyes and all related structures Resp: Effort & Inspection: normal respiratory effort GI: Other: Largely obese, RLQ tender to palpation : Male General Exam: No tenderness Skin: General skin exam: normal color Neuro: Speech: normal speech Psych: Speech and movement: Normal speech and movement present Results Labs 09/21/24 08:02 09/21/24 08:02 Labs: Short CBC 09/20/24 09/21/24 Range/Units 13: 08:02 WBC 10.8 H 6.1 (4.5-10.0) K/mm3 Hgb 16.3 14.8 (14.0-18.0) g/dL Hct 50.5 45.8 (42.0-52.0) % Plt Count 249 202 (150-375) k/mm3 BMP 09/20/24 09/21/24 13: 08:02 Sodium 141 140 Potassium 4.6 4.4 Chloride 110 H 112 H Carbon Dioxide 23 22 BUN 24 H 24 H Creatinine 2.30 H 1.80 H Glucose 104 102 Calcium 9.5 8.9 Liver Function 09/20/24 09/21/24 Range/Units 13: 08:02 Total Bilirubin 0.6 0.5 (0.2-1.3) mg/dL AST 39 34 (17-59) U/L ALT 70 H 53 H (6-50) U/L Alkaline Phosphatase 73 60 (38-126) U/L Albumin 4.3 3.8 (3.5-5.1) g/dL Urine 09/20/24 Range/Units 13: Urine Color Yellow (Yellow) Urine Appearance Clear (Clear) Urine pH 5.5 (5.0-9.0) Ur Specific [place] 1.017 (1.001-1.035) Urine Protein Negative (Negative) mg/dL Urine Glucose (UA) Negative (Negative) mg/dL
[2024-09-21] MEDS: FLUTICASONE PROPIONATE 0.05% NA SPR 16 GM BTL (*BKC) 2 SPRAY NASAL (08:50)
--- NOTE | 2024-09-21 09:50 | PC.NURSE ---
To OR per stretcher. Report given to MEHREEN Page.
--- NOTE | 2024-09-21 10:13 | WPDHPUPDATE1 ---
History and Physical Update Update Date/Time: 09/21/24 10:13 History and Physical has been reviewed, including an updated exam of the patient. There are NO changes in the patient's condition. Risks, benefits, and alternatives have been discussed and questions answered. Patient agrees to proceed with procedure. Proceed with cysto, right retrograde, right ureteroscopy with stone extraction, possible laser, stent placement
--- NOTE | 2024-09-21 10:17 | P.PNAN_ITS ---
Anes - Initial Pre Proc Eval Procedure: Operation Date: 09/21/24 12:00 Proposed Procedures p Cystoscopy, Right Ureteroscopy, Possible Right Retrograde Pyelogram, Possible Right Stone Extraction, Possible Right Stent Placement, Possible Holmium Laser Procedure - Edgard Lee MD Date/Time: 09/21/24 10:17 Surgeon: Hiram Calderón MD Pre Op Diagnosis: shannan, ureterolithiasis Patient Data Age: 54 Gender: M Height: 1.78 m Weight: 136 kg Last Vital Signs Temp 36.4 C 09/21/24 06:00 Pulse 87 09/21/24 06:00 Resp 20 09/21/24 06:00 BP 136/81 09/21/24 06:00 Pulse Ox 98 09/21/24 06:00 O2 Del Method Autopap 09/21/24 01:40 Allergies Allergy/AdvReac Type Severity Reaction Status Date / Time No Known Allergies Allergy Verified 09/20/24 09:40 Home Medications ?Medication ?Instructions ?Recorded ?Confirmed ?Type aspirin 81 mg tablet,delayed 81 mg PO DAILY 05/13/22 09/20/24 History release (Adult Low Dose Aspirin) cholecalciferol (vitamin D3) 50 50 mcg PO DAILY 05/13/22 09/20/24 History mcg (2,000 unit) capsule fluticasone propionate 50 2 spray intranasal DAILY 05/13/22 09/20/24 History mcg/actuation nasal spray,suspension allopurinol 300 mg tablet 300 mg PO DAILY #90 tabs 03/23/24 09/20/24 Rx atorvastatin 20 mg tablet 20 mg PO DAILY #90 tabs 04/09/24 09/20/24 Rx metoprolol tartrate 25 mg tablet See Rx Instructions .Route 06/14/24 09/20/24 Rx .COMPLEX #180 tabs lisinopril 40 mg tablet See Rx Instructions .Route 06/15/24 09/20/24 Rx .COMPLEX #90 tabs fenofibrate micronized 134 mg 134 mg PO DAILY #90 caps 06/22/24 09/20/24 Rx capsule needle (disp) 18 G 18 gauge x 1 #4 ea 09/04/24 09/20/24 Rx 1/2 (BD Regular [place]vel [place]) testosterone cypionate 200 mg/mL 200 mg IM WEEKLY #3 mL 09/13/24 09/20/24 Rx intramuscular oil cetirizine 10 mg tablet (24Hour 10 mg PO DAILY PRN allergy symptoms 09/20/24 09/20/24 History Allergy) Laboratory Tests 09/20/24 09/21/24 13:25 08:02 WBC 10.8 H K/mm3 6.1 K/mm3 (4.5-10.0) (4.5-10.0) RBC 6.00 M/mm3 5.47 M/mm3 (4.6-6.20) (4.6-6.20) Hgb 16.3 g/dL 14.8 g/dL (14.0-18.0) (14.0-18.0) Hct 50.5 % 45.8 % (42.0-52.0) (42.0-52.0) MCV 84.2 fl 83.7 fl (80-100) (80-100) MCH 27.2 pg 27.1 pg (26-34) (26-34) MCHC 32.3 g/dl 32.3 g/dl (32-36) (32-36) RDW 15.4 H % 15.1 H % (11.5-14.5) (11.5-14.5) Plt Count 249 k/mm3 202 k/mm3 (150-375) (150-375) MPV 10.3 fl 10.1 fl (7.4-10.4) (7.4-10.4) Immature Gran % (Auto) 0.3 % 0.3 % (0-0.5) (0-0.5) Neut % (Auto) 74.2 H % 63.7 % (45.5-73.1) (45.5-73.1) Lymph % (Auto) 9.0 L % 17.3 L % (18.3-44.2) (18.3-44.2) Page % (Auto) 12.7 H % 13.6 H % (2.6-8.5) (2.6-8.5) Eos % (Auto) 3.1 % 4.3 % (0-4.4) (0-4.4) Baso % (Auto) 0.7 % 0.8 % (0.2-1.2) (0.2-1.2) Lymph # (Auto) 0.97 K/mm3 1.06 K/mm3 (0.9-3.2) (0.9-3.2) Page # (Auto) 1.4 H K/mm3 0.8 H K/mm3 (0.1-0.6) (0.1-0.6) Eos # (Auto) 0.3 K/mm3 0.3 K/mm3 (0-0.3) (0-0.3) Baso # (Auto) 0.1 K/mm3 0.1 K/mm3 (0.0-0.1) (0.0-0.1) Abs Immat Gran (auto) 0.03 K/mm3 0.02 K/mm3 (0.00-0.031) (0.00-0.031) Absolute Neuts (auto) 8.0 H K/mm3 3.9 K/mm3 (1.3-6.7) (1.3-6.7) Absolute Nucleated RBC 0.000 K/mm3 0.000 K/mm3 (0.0-0.012) (0.0-0.012) Nucleated RBC % 0.0 % 0.0 % (0.0-0.2) (0.0-0.2) Sodium 141 mmol/L 140 mmol/L (137-145) (137-145) Potassium 4.6 mmol/L 4.4 mmol/L (3.4-5.0) (3.4-5.0) Chloride 110 H mmol/L 112 H mmol/L (98-107) (98-107) Carbon Dioxide 23 mmol/L 22 mmol/L (22-30) (22-30) Anion Gap 8 mmol/L 6 mmol/L (4-12) (4-12) BUN 24 H mg/dL 24 H mg/dL (9-20) (9-20) Creatinine 2.30 H mg/dL 1.80 H mg/dL (0.7-1.3) (0.7-1.3) Estim Creat Clear Calc 46 ml/min 58 ml/min Estimated GFR 30 L 39 L (59 - ) (59 - ) Glucose 104 mg/dL 102 mg/dL (65-110) (65-110) Calcium 9.5 mg/dL 8.9 mg/dL (8.4-10.2) (8.4-10.2) Total Bilirubin 0.6 mg/dL 0.5 mg/dL (0.2-1.3) (0.2-1.3) AST 39 U/L 34 U/L (17-59) (17-59) ALT 70 H U/L 53 H U/L (6-50) (6-50) Alkaline Phosphatase 73 U/L 60 U/L (38-126) (38-126) Total Protein 8.0 g/dL 7.0 g/dL (6.3-8.2) (6.3-8.2) Albumin 4.3 g/dL 3.8 g/dL (3.5-5.1) (3.5-5.1) Lipase 127 U/L (23-300) Urine Color Yellow (Yellow) Urine Appearance Clear (Clear) Urine pH 5.5 (5.0-9.0) Ur Specific [place] 1.017 (1.001-1.035) Urine Protein Negative mg/dL (Negative) Urine Glucose (UA) Negative mg/dL (Negative) Urine Ketones Negative mg/dL (Negative) Ur Blood (Man) 3+ H (Negative) Urine Nitrate Negative (Negative) Urine Bilirubin Negative (Negative) Urine Urobilinogen 0.2 mg/dL (<2.0) Leukocyte Esterase Rfl Trace H LD/UL (Negative) Urine RBC 21-50 H /hpf (0-2) Urine WBC 0-5 /hpf (0-3) Ur Squamous Epith Cells None seen /hpf (Few) Urine Bacteria None seen /hpf Urine Casts 3-5 Influenza A (RT-PCR) Negative (Negative) Influenza B (RT-PCR) Negative (Negative) RSV (RT-PCR) Negative (Negative) SARS-CoV-2 RNA (RT-PCR) Negative (Negative) Patient hx anesthesia problems: none Family hx anesthesia problems: none Results Review: All pre-operative results and documents have been reviewed as part of the pre- operative evaluation. [facility] Past Medical History Medical History Colon polyps tubular adenoma Prediabetes Hypogonadism in male Thoracic aortic aneurysm 4.3 x 4.3 cm Hypertension Dyslipidemia ROSARIO (obstructive sleep apnea) Allergies Hx of nephrolithotomy with removal of calculi Surgical History Surgical History History of colonoscopy Family History Family History Mother Breast cancer Diabetes mellitus Father Hypertension Social History Social History Smoking status: Never smoker Alcohol intake: current Drinks per week: 1 Substance use: never Do You Feel Safe in your Home?: Yes Lack of Transportation: No Lack of Food: Never True Current Housing: I Have Housing Concerned About Future Housing: No Difficulty Paying Gas/Electric Bills: No Difficulty Paying for Meds: No Currently Unemployed: No Education: Associate Degree Difficulty w/ Childcare or Family Care: No Living arrangements: with family Occupation/Education: occupation 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 Informed Consent: The patient's anesthetic plan and its attendant risks and benefits were discussed with the patient/family/POA. Questions were solicited and answers provided to the satisfaction of the patient/family/POA.
[2024-09-21] MEDS: LACTATED RINGERS 1,000 ML 30 ML IV CONT (10:32)
[2024-09-21] MEDS: LIDOCAINE 2% GEL UROJET 10 ML PKG MUCOUS MEM (10:32)
--- NOTE | 2024-09-21 11:00 | P.OP_ITS ---
Procedure Note - Detailed Date of Procedure 09/21/24 Pre-op Diagnosis For right UVJ calculus 5 mm Post-op Diagnosis Same Procedure Performed Cystoscopy, right retrograde, right ureteroscopy with stone extraction, right ureteral stent placement 4.8 [place] contour Surgeon Edgard Lee MD Anesthesia General Description of Procedure Patient was taken to the operative suite correctly identified. Once anesthesia was obtained was placed in dorsal lithotomy position and prepped and draped usual sterile fashion. Twenty-two [place] scope was inserted the bladder no tumors noted. Right ureteral orifice was cannulated with a guidewire. The ureter was dilated with an 8/10 dilator. Rigid ureteral scope was inserted. The stone was visualized. Using an escape basket was retrieved with to entirety and sent for analysis. Pyelogram was then performed confirm placement of the stent. 4.8 [place] contour stent was placed with the proximal end coiled in the renal pelvis and the distal in the bladder. Bladder was drained. 2% viscous lidocaine was inserted into the urethra patient is taken recovery stable condition. Patient is to follow-up in a week for stent removal call for appointment. This completes dictation. Please send a copy of op note to my office. Estimated Blood Loss 0 Urine Output 200 Drains Yes Packing No Pathology Yes Complications No immediate complications Condition Stable Disposition PACU
--- NOTE | 2024-09-21 12:17 | PC.NURSE ---
Returned from OR per stretcher. Report received from MEHREEN Love.
--- NOTE | 2024-09-21 13:38 | P.DS_ITS ---
DS: Admitting Diagnosis Discharge Date 09/21/24 Admitting Diagnosis Urolithiasis RONALDO Leukocytosis hypertension Thoracic aortic aneurysm dyslipidemia DS: Discharge Diagnosis Discharge Diagnosis (1) Ureterolithiasis: Code(s): N20.1 - Calculus of ureter Status: Acute (2) RONALDO (acute kidney injury): Code(s): N17.9 - Acute kidney failure, unspecified Status: Acute (3) Leukocytosis: Qualifiers: Leukocytosis type: unspecified Qualified Code(s): D72.829 - Elevated white blood cell count, unspecified Code(s): D72.829 - Elevated white blood cell count, unspecified Status: Acute (4) Hypertension: Code(s): I10 - Essential (primary) hypertension Status: Chronic (5) Thoracic aortic aneurysm: Code(s): I71.2 - Thoracic aortic aneurysm, without rupture Status: Chronic (6) Dyslipidemia: Code(s): E78.5 - Hyperlipidemia, unspecified Status: Chronic DS: Summary Hospital Course Reason for hospitalization: Urolithiasis RONALDO Leukocytosis hypertension Thoracic aortic aneurysm dyslipidemia Hospital Course: This is a 54-year-old male with significant past medical history of thoracic aortic aneurysm, hypertension, dyslipidemia, ROSARIO, history of kidney stones who presented to the hospital with complaints of right flank pain. Patient states that his right flank pain started last Tuesday any tried treating it at home with Tylenol and naproxen however the pain worsened over the past few days. He denies any nausea, vomiting, diarrhea, abdominal pain, chest pain, shortness a breath. He was reporting low-grade fevers and chills at home with associated right flank pain. He presents for further workup. Workup in the hospital included an abdomen pelvis CT which showed mild right-sided hydroureteronephrosis secondary to a 5 mm stone at the right UVJ, hepatosplenomegaly. Chest x-ray was negative for infiltrate or effusion. Initial labs showed a white blood cell count of 10.8, creatinine 2.30, EGFR 30, ALT 70, lipase was normal at 127. UA was obtained and showed 3+ urine blood, trace leukocyte, 21-50 urine RBC, otherwise negative. Respiratory panel was negative for influenza a and B, RSV, COVID. EKG showing NSR with a rate of 87, QTc 403. Patient went for cystoscopy with stone removal and stent placement today. He is doing well after the procedure and creatinine is going back to baseline. He will need to follow up with Urology in 1 week for stent removal. Final diagnosis: Urolithiasis, RONALDO Status at Discharge Cognitive/behavioral status at discharge: alert and oriented x3 Functional status at discharge: independent ambulation Overall status at discharge: patient is progressing back to baseline Time Spent with Patient Time attestation: Total time spent providing and/or coordinating discharge services: Time spent: Less than 30 minutes Exam Narrative: General: In no acute distress, well nourished Cardiac: Normal S1 and S2. No murmur, gallops or friction rubs, peripheral pulses intact. Respiratory: Lungs clear to auscultation, no adventitious lung sounds, currently on room air Gastrointestinal: soft, non-distended, non-tender, normoactive bowel sounds. : voiding without difficulty pink tinged urine Neuro: Alert and oriented x4 DS: Data Data Completed and Pending Completed studies during hospitalization: Abdomen/pelvis CT Chest x-ray Retrograde pyelogram Pending studies at discharge: Pending at discharge 09/21/24 10:54 Surgical [PTH] Routine Labs on day of discharge: Labs from last 24 hours 09/21/24 09/20/24 08:02 13:25 WBC 6.1 RBC 5.47 Hgb 14.8 Hct 45.8 MCV 83.7 MCH 27.1 MCHC 32.3 RDW 15.1 H Plt Count 202 MPV 10.1 Immature Gran % (Auto) 0.3 Neut % (Auto) 63.7 Lymph % (Auto) 17.3 L [place] % (Auto) 13.6 H Eos % (Auto) 4.3 Baso % (Auto) 0.8 Lymph # (Auto) 1.06 [place] # (Auto) 0.8 H Eos # (Auto) 0.3 Baso # (Auto) 0.1 Abs Immat Gran (auto) 0.02 Absolute Neuts (auto) 3.9 Absolute Nucleated RBC 0.000 Nucleated RBC % 0.0 Sodium 140 141 Potassium 4.4 4.6 Chloride 112 H 110 H Carbon Dioxide 22 23 Anion Gap 6 8 BUN 24 H 24 H Creatinine 1.80 H 2.30 H Estim Creat Clear Calc 58 46 Estimated GFR 39 L 30 L Glucose 102 104 Calcium 8.9 9.5 Total Bilirubin 0.5 0.6 AST 34 39 ALT 53 H 70 H Alkaline Phosphatase 60 73 Total Protein 7.0 8.0 Albumin 3.8 4.3 Lipase 127 Urine Color Yellow Urine Appearance Clear Urine pH 5.5 Ur Specific [place] 1.017 Urine Protein Negative Urine Glucose (UA) Negative Urine Ketones Negative Ur Blood (Man) 3+ H Urine Nitrate Negative Urine Bilirubin Negative Urine Urobilinogen 0.2 Leukocyte Esterase Rfl Trace H Urine RBC 21-50 H Urine WBC 0-5 Ur Squamous Epith Cells None seen Urine Bacteria None seen Urine Casts 3-5 Influenza A (RT-PCR) Negative Influenza B (RT-PCR) Negative RSV (RT-PCR) Negative SARS-CoV-2 RNA (RT-PCR) Negative Procedures/Treatments: cystoscopy, right retrograde, right ureteroscopy with stone extraction, right ureteral stent placement Discharge Plan Discharge Attending physician on discharge: Hiram Calderón Consulting providers: Abdi Vaqzuez Discharging Clinician: Abbie Ernandez Anticipated Discharge Date/Time: 09/21/24 11:15 Patient Disposition: Home, Self-Care Activity: as tolerated Diet: as tolerated and regular Discharge Instructions: * Follow up with Urology in 1 week for stent removal * Get lab in 1 week before your appointment to recheck your creatinine * Your creatinine is 1.8 which is trending down. Patient Instructions: Antibiotic Form Patient Language: Portuguese Stand Alone Forms: General Discharge Information Follow-up/Referrals: Edgard Lee MD [Physician] - Discharge Medications: New tramadol 50 mg tablet 50 mg PO Q6H PRN (Reason: pain) Qty: 20 0RF tamsulosin 0.4 mg Capsule 0.4 mg PO QAM Qty: 30 0RF oxybutynin chloride 5 mg tablet 5 mg PO BID PRN (Reason: bladder spasms) Qty: 30 0RF Rx Instructions: Take as needed for bladder spasms sulfamethoxazole-trimethoprim [Bactrim DS] 800-160 mg tablet 1 tablet PO Q12H Qty: 6 0RF Continued aspirin [Adult Low Dose Aspirin] 81 mg tablet,delayed release (DR/EC) 81 mg PO DAILY cholecalciferol (vitamin D3) 50 mcg (2,000 unit) capsule 50 mcg PO DAILY fluticasone propionate 50 mcg/actuation spray,suspension 2 spray intranasal DAILY Rx Instructions: administer into each nostril cetirizine [24Hour Allergy] 10 mg tablet 10 mg PO DAILY PRN (Reason: allergy symptoms) allopurinol 300 mg tablet 300 mg PO DAILY Qty: 90 1RF atorvastatin 20 mg tablet 20 mg PO DAILY Qty: 90 1RF metoprolol tartrate 25 mg tablet See Rx Instructions .ROUTE .COMPLEX Qty: 180 1RF Dose Instruction: Take 1 tablet by mouth twice daily Rx Instructions: Take 1 tablet by mouth twice daily lisinopril 40 mg tablet See Rx Instructions .ROUTE .COMPLEX Qty: 90 1RF Dose Instruction: Take 1 tablet by mouth once daily Rx Instructions: Take 1 tablet by mouth once daily fenofibrate micronized 134 mg capsule 134 mg PO DAILY Qty: 90 0RF (DME) BD Regular Bevel [place] 18 gauge x 1 1/2 needle See Rx Instructions .ROUTE .COMPLEX Qty: 4 0RF Dose Instruction: USE DIRECTED TO DRAW UP TESTOSTERONE Rx Instructions: USE DIRECTED TO DRAW UP TESTOSTERONE testosterone cypionate 200 mg/mL oil 200 mg IM WEEKLY Qty: 3 1RF Patient Comments: fridays Other Ambulatory Orders: Basic Metabolic Panel (Routine) Timeframe: 1 Week Location: Determined by Patient Ordered By: Abbie Ernandez Date of admission: 09/20/24 17:54 Primary Care Provider: Heydi Chand I. Admitting Provider: Hiram Calderón Attending physician on admission: Hiram Calderón Condition: Improved Quality VTE Prophylaxis VTE prophylaxis: mechanical ordered Hospitalist MIPS Heart Failure (Exclusion) Patient has history of Heart Transplant or Left Ventricular Assistive Device?: No IF YES, STOP HERE Heart Failure (Qualifier) Patient has current or prior documentation of LVEF less than or equal to 40%, or mod/servere depressed LVSF?: No IF NO, STOP HERE
--- NOTE | 2024-09-21 14:17 | PC.NURSE ---
On 09/21/24, the BEATER LEAD, [Mara Trevino ], provided care and completed [facility] documentation on this patient. I have reviewed the BEATER LEAD's documentation and agree with the findings.
[2024-09-21] MEDS: METOPROLOL TARTRATE 25 MG TABLET PO (15:35)
[2024-09-21] MEDS: ATORVASTATIN 20 MG TABLET PO (15:36)
[2024-09-21] MEDS: ASPIRIN 81 MG ENTERIC TABLET PO (15:36)
[2024-09-21] MEDS: allopurinoL 300 MG TABLET PO (15:36)
[2024-09-21] MEDS: CHOLECALCIFEROL 1,000 UNITS TABLET 2000 UNITS PO (15:36)
[2024-09-21] MEDS: TAMSULOSIN HCL 0.4 MG CAPSULE PO (15:36)
== END 2024-09-21 16:50 | disposition home or self-care (01) ==
LOC: ANHED 14:18 → ANH3MEDSUR 19:32
PROVIDERS: Nurse Practitioner Acute Care; Physician Assistant; Urology; Admitting Provider General Practice; Emergency Provider Emergency Medicine; PCP Physician Assistant Medical; Visit Provider General Practice
PROC: (CPT 52352; principal; 2024-09-21 12:00)
DX: N13.2 Hydronephrosis with renal and ureteral calculous obstruction (principal); N17.9 Acute kidney failure, unspecified; D72.829 Elevated white blood cell count, unspecified; I10 Essential (primary) hypertension; I71.20 Thoracic aortic aneurysm, without rupture, unspecified; E78.5 Hyperlipidemia, unspecified; E66.01 Morbid (severe) obesity due to excess calories; Z68.41 Body mass index [BMI] 40.0-44.9, adult; R73.03 Prediabetes; G47.33 Obstructive sleep apnea (adult) (pediatric); Z20.822 Contact with and (suspected) exposure to COVID-19; Z87.442 Personal history of urinary calculi; Z86.0101 Personal history of adenomatous and serrated colon polyps; Z79.82 Long term (current) use of aspirin; Z79.899 Other long term (current) drug therapy
CPT/HCPCS: 52352; 52332; 36415; 71046; 74176; 74420; 80053; 81001; 82365; 83690; 85025; 87637; 88300; 96361; 96374; 96375; 99285; A9270; C1769; C2617; G0378; J0696; J1100; J1885; J2003; J2250; J2405; J2704; J3010; J7030; J7120; Q9966

== ENCOUNTER 2024-11-27 13:56 | Outpatient (CLI) | payer BC, SELFPAY ==
[2024-11-27 14:25] LABS: Basophils Absolute Auto 0.1 K/mm3 (0.0-0.1); Basophils Percent Auto 0.9 % (0.2-1.2); Eosinophils Absolute Auto 0.5 K/mm3 (0-0.3); Hematocrit 46.6 % (42.0-52.0); Hemoglobin 15.2 g/dL (14.0-18.0); Immature Granulocyte Absolute 0.06 K/mm3 (0.00-0.031); Immature Granulocyte Percent A 0.5 % (0-0.5); Lymphocytes Absolute Auto 2.37 K/mm3 (0.9-3.2); Lymphocytes Percent Auto 19.6 % (18.3-44.2); Mean Corpuscular HGB Conc 32.6 g/dl (32-36); Mean Corpuscular Hemoglobin 27.3 pg (26-34); Mean Corpuscular Volume 83.8 fl (80-100); Mean Platelet Volume 10.5 fl (7.4-10.4); Monocytes Percent Auto 8.3 % (2.6-8.5); Neutrophils Absolute Auto 8.1 K/mm3 (1.3-6.7); Neutrophils Percent Auto 66.7 % (45.5-73.1); Platelet Count Result 295 k/mm3 (150-375); Red Blood Count 5.56 M/mm3 (4.6-6.20); White Blood Count 12.1 K/mm3 (4.5-10.0)
--- OUTSIDE RECORDS SUMMARY | 2024-11-27 15:46 | XMS_ITS | Clinical Summary ---
Author Organization [facility] Address [facility] [place] [address] Care Team Providers Care Nurse Orthopaedic Name Role Phone Segun Coker MD Unavailable [phone] Heydi Chand Primary Care Provider [phone] Allergies No known active allergies Medications fenofibrate micronized 134 MG capsule Take 1 capsule (134 mg total) by mouth daily. 0 07/14/20 17 Active atorvastatin (LIPITOR) 20 MG tablet Take 1 tablet (20 mg total) by mouth nightly at bedtime. 07/22/20 17 Active Cholecalcifero l (VITAMIN D) 2000 UNITS Tab Take 1 tablet (50 mcg total) by mouth daily. 07/22/20 17 Active aspirin EC (ECOTRIN) 81 MG tablet Take 1 tablet (81 mg total) by mouth daily. Active allopurinol 300 MG tablet Take 1 tablet (300 mg total) by mouth daily. 04/23/20 20 Active testosterone cypionate 200 MG/ML injection INJECT 0.6 ML INTRAMUSCULARLY ONCE A WEEK 07/03/20 20 Active loratadine (CLARITIN) 10 MG tablet Take 1 tablet (10 mg total) by mouth daily. Active metoprolol tartrate (LOPRESSOR) 25 MG tablet Take 1 tablet (25 mg total) by mouth 2 (two) times daily. 06/20/20 23 Active BD DISP NEEDLES 18G X 1-1/2 Misc Inject 1 Needle into the skin once a week. 01/01/20 24 Active lisinopril (PRINIVIL) 40 MG tablet Take 1 tablet (40 mg total) by mouth daily. 03/24/20 24 Active albuterol sulfate HFA 108 (90 Base) MCG/ACT inhalerIndicat ions:RAMOS (dyspnea on exertion) Inhale 2 puffs into the lungs every 4 (four) hours as needed for Wheezing. 6.7 g 6 05/01/20 24 Active Active Problems Problem Noted Date Diagnosed Date Hx of colonic polyp 12/09/2023 Ascending aortic aneurysm 06/11/2022 Assessment & Plan (06/11/2022 12:48 PM CDT): Incidental finding on CT chest 4.3cm CTA chest imaging in 6 months Echo BP control Statin and asa CPAP (continuous positive airway pressure) brayden smith 06/23/2017 ROSARIO (obstructive sleep apnea) 06/13/2017 Assessment & Plan (06/11/2022 8:34 AM CDT): Encouraged compliance on CPAP machine Dyslipidemia Assessment & Plan (06/11/2022 8:34 AM CDT): Component Ref Range & Units 11/11/20 1139 CHOLESTEROL <200 MG/DL 169 TRIGLYCERIDE <150 MG/DL 116 HDL >40.0 MG/DL 42 LDL (CALCULATED) <100 MG/DL 104 High Resolved Problems Problem Noted Date Diagnosed Date Resolved Date Encounter for screening colonoscopy 12/09/2023 12/12/2023 Encounter for screening colonoscopy 12/09/2023 01/23/2024 Family History Medical History Relation Comments Heart Attack Maternal Grandfather Heart Attack Maternal Grandmother Stroke Mother Heart Attack Paternal Grandfather Relation Status Comments Brother 1 Alive Brother 2 Alive Brother 3 Alive Father Alive Maternal Grandfather Maternal Grandmother Mother Alive Paternal Grandfather Paternal Grandmother Sister Alive Social History Tobacco Use Types Packs/Day Years Used Date Smoking Tobacco: Never Smokeless Tobacco: Never Tobacco Cessation:Counseling Given: Yes Alcohol Use Standard Drinks/Week Comments Yes 0 (1 standard drink = 0.6 oz pur e alcohol) 1 per week PHQ-2 Answer Date Recorded Patient Health Questionnaire-2 Score 0 12/09/2023 Sex and Gender Information Value Date Recorded Sex Assigned at Not on file Legal Sex Male 10:02 PM CDT Gender Identity Not on file Sexual Orientation Not on file Occupation Industry Job Start Date Job End Date Not on file Not on file Not on file Not on file Last Filed Vital Signs Vital Sign Reading Time Taken Comments Blood Pressure 132/90 08/20/2024 1:03 PM CLEARING HAND Pulse 85 08/20/2024 1:03 PM CLEARING HAND Temperature 36.8 C (98.2 F) 08/20/2024 1:03 PM CLEARING HAND Respiratory Rate 18 08/20/2024 1:03 PM CLEARING HAND Oxygen Saturation 97% 08/20/2024 1:03 PM CLEARING HAND RA Inhaled Oxygen Concentration - - Weight 141.1 kg (311 lb) 08/20/2024 1:03 PM CLEARING HAND Height 177.8 cm (5' 10 ) 08/20/2024 1:03 PM CLEARING HAND Body Mass Index 44.62 08/20/2024 1:03 PM CLEARING HAND Plan of Treatment Upcoming Encounters Date Type Department Care Team (Late st Contact Info) Description 07/29/2025 8:00 AM CLEARING HAND Appointment [place] [address] Reese Lomax MD 3 [facility] [address] [place] [address] 08/08/2025 9:30 AM CLEARING HAND Office Visit [facility] [address] [facility] [place] [address] Reese Lomax MD 3 [facility] [address] [place] [address] 08/19/2025 1:20 PM CLEARING HAND Office [facility] [address] [address] Guy Gould DO [address] [facility] [address] [place], [place] [address] Health Maintenance Due Date Last Done Comments Annual Physical 1971 Hepatitis C 1986 DTaP, Tdap and Td Vaccines ( 1 - Tdap) 1987 Hepatitis B Vaccines (1 of 3 - 19+ 3-dose series) 1987 Zoster Vaccines (1 of 2) 2018 COVID-19 Vaccine (2 - 2023-2 5 season) 2024 04/04/2021 Influenza Adult (#1) 2024 PHQ-2 (Physician Middleton) 09/19/2024 12/09/2023 Colorectal Cancer Screening Colonoscopy (10 Years) 01/19/2034 01/20/2024, 04/09/2019 Meningococcal B Vaccine Aged Out No l onger eligible based on patient's age to complete this topic Meningococcal Vaccine Aged Out No kendrick joyce eligible based on patient's age to complete this topic Pneumococcal Vaccine: Pediatrics (0 to 5 Years) and At-Risk Patients (6 to 64 Years) Aged Out No longer eligible b ased on patient's age to complete this topic RSV Immunizations Under 20 Months Aged Out No longer eligible b ased on patient's age to complete this topic Procedures Procedure Name Priority Date/Time Associated Diagnosis Comments COLONOSCOPY GENERIC (SCAN ORDER) Routine 04/09/2019 from Last 3 Months or Most Recently Relevant to Health Maintenance Results * COLONOSCOPY (04/09/2019) us Documents Scanned SCANNING Final Result from Last 3 Months or Most Recently Relevant to Health Maintenance Insurance Advance Directives * Full Code (Latest Code Status on File) Date Activated Date Inactivated Comments 11/11/2020 1:21 PM 11/11/2020 7:10 PM Care Teams Nurse Orthopaedic Relationship Specialty Start Date End Date Heydi Chand PA [facility]. [address] [address] PCP - General PHYSICIAN COATING MIXER SUPERVISOR 05/07/22 Segun Coker MD [facility]. [address] [address] Mable Pals Nurse CARDIOVASCULAR DISEASE 07/20/17
--- OUTSIDE RECORDS SUMMARY | 2024-11-27 15:47 | XMS_ITS | Encounter Summary ---
Author Organization [facility] Address [facility] [place] [address] Care Team Providers Care Ice Resurfacing Machine Operators Name Role Phone Wang Barth MD Primary Care Provider [phone] Segun Coker MD Unavailable [phone] Heydi Chand Primary Care Provider Encounter Details Date Type Department Care Team (Late st Contact Info) Description 08/05/2020 Abstract [facility] at [address] [address] Ousmane Carlson MA Social History Tobacco Use Types Packs/Day Years Used Date Smoking Tobacco: Never Smokeless Tobacco: Never Alcohol Use Standard Drinks/Week Comments Yes 0 (1 standard drink = 0.6 oz pur e alcohol) 1/week Sex and Gender Information Value Date Recorded Sex Assigned at Not on file Legal Sex Male 10:02 PM CDT Gender Identity Not on file Sexual Orientation Not on file Occupation Industry Job Start Date Job End Date Not on file Not on file Not on file Not on file COVID-19 Exposure Response Date Recorded In the last month, have you been in contact with someone who was confirmed or suspected to have Coronavirus / COVID-19? Unable to assess 08/01/2020 1:59 PM EXEC. CREATIVE DIRECTOR documented as of this encounter Plan of Treatment Upcoming Encounters Date Type Department Care Team (Late st Contact Info) Description 07/29/2025 8:00 AM EXEC. CREATIVE DIRECTOR Appointment [place] [address] [place] [address] Reese Lomax MD 3 [facility] [address] [place] [address] 08/08/2025 9:30 AM EXEC. CREATIVE DIRECTOR Office Visit [facility] [address] [facility] [address] [place] [address] Reese Lomax MD 3 [facility] [address] [place] [address] 08/19/2025 1:20 PM EXEC. CREATIVE DIRECTOR Office Visit [facility] [address] [address] Guy Gould DO [address] [place] [address] documented as of this encounter Procedures Procedure Name Priority Date/Time Associated Diagnosis Comments CBC (OUTSIDE LAB) Routine 01/24/2020 PROSTATE SPECIFIC ANTIGEN,TOTAL Routine 01/24/2020 COMPREHENSIVE METABOLIC PANEL Routine 01/24/2020 LIPID PANEL Routine 01/24/2020 VITAMIN D, 25 OH Routine 01/24/2020 MAGNESIUM Routine 01/24/2020 URIC ACID BLOOD Routine 01/24/2020 documented in this encounter Results * PROSTATE SPECIFIC ANTIGEN,TOTAL (01/24/2020) PSA 0.4 01/24/2020 us Doc [facility]ORATORY Final Result * CBC (OUTSIDE LAB) (01/24/2020) Pathologist [facility] WBC 9.8 HGB 14.8 HCT 46.6 PLT 297 01/24/2020 us Doc [facility] Abstract LAB-OUTSIDE/ABSTRACTED Final Result * URIC ACID BLOOD (01/24/2020) [facility] URIC ACID 5.6 01/24/2020 us Doc [facility] Final Result * VITAMIN D, 25 OH (01/24/2020) [facility] VITAMIN D 25 HYDROXY S/P/B 29 01/24/2020 us Doc [facility] Final Result * MAGNESIUM (01/24/2020) [facility] MAGNESIUM 1.9 1.5 - 2.5 01/24/2020 us Doc [facility] Final Result * (ABNORMAL) COMPREHENSIVE METABOLIC PANEL (01/24/2020) [facility] SODIUM S/P/B 140 POTASSIUM S/P/B 4.6 CO2 25 CHLORIDE S/P/B 107 GLUCOSE 93 mg/dL CALCIUM S/P/B 9.8 BUN 19 CREATININE S/P/B 1.07 0.7 - 1.3 EGFR AFR. AMER. 93(A) <=90 EGFR NON-AFR. AMER. 80 <=90 ALKALINE PHOSPHATASE S/P/B 51 ALT 68 AST 33 BILIRUBIN TOTAL S/P/B 0.4 ALBUMIN S/P/B 4.5 3.5 - 5.0 TOTAL PROTEIN S/P/B 7.4 GLOBULIN 2.9 01/24/2020 us Doc [facility] Final Result * LIPID PANEL (01/24/2020) CHOLESTEROL 156 HDL 34 TRIGLYCERIDES 150 NON HDL CHOLESTEROL 122 LDL (CALCULATED) 97 01/24/2020 us Doc [facility] Final Result documented in this encounter Visit Diagnoses Not on filedocumented in this encounter Additional Health Concerns Infection Onset Date Last Indicated Resolved Time COVID-19 Rule Out 01/30/2022 01/30/2022 01/30/2022 8:45 PM CDT documented as of this encounter Care Teams Ice Resurfacing Machine Operators Relationship Specialty Start Date End Date Wang Barth MD PCP - General INTERNAL MEDICINE 07/11/17 05/06/22 Heydi Chand PA [address] [facility] [address] [place], [place] [address] PCP - General PHYSICIAN RAILS DEVELOPER 05/07/22 Segun Coker MD [address] [facility] [address] [place] [address] Mable Quality Control Representative CARDIOVASCULAR DISEASE 07/20/17 documented as of this encounter
--- OUTSIDE RECORDS SUMMARY | 2024-11-27 15:47 | XMS_ITS | Encounter Summary ---
Author Organization [facility]3] [employer] Address [address] [place] [address] Care Team Providers Care Workforce Advisor Name Role Phone Unavailable Primary Care Provider Unavailabl e Encounter Details Date Type Department Care Team (Late st Contact Info) Description 11/27/2024 Abstract [facility] Oncology and Hematology - [place] [address] [place] [address] Leonardo Drummond MD [address] [place] [address] [address] [place] [phone] Social History Tobacco Use Types Packs/Day Years Used Date Smoking Tobacco: Never Smokeless Tobacco: Never Alcohol Use Standard Drinks/Week Comments Yes 0 (1 standard drink = 0.6 oz pur e alcohol) Occasionally Sex and Gender Information Value Date Recorded Sex Assigned at Not on file Legal Sex Male 2:56 PM SAFE EXPERT Gender Identity Not on file Sexual Orientation Not on file documented as of this encounter Plan of Treatment Upcoming Encounters Date Type Department Care Team (Late st Contact Info) Description 12/12/2024 4:15 PM CDT Telephone Check Up [facility] Oncology and Hematology - [place] [address] [place] [address] Leonardo Drummond MD [address] [place] [address] documented as of this encounter Visit Diagnoses Not on filedocumented in this encounter
--- OUTSIDE RECORDS SUMMARY | 2024-11-27 15:47 | XMS_ITS | Encounter Summary ---
Author Organization [facility] Address [facility] [place] [address] Care Team Providers Care Ambulatory Care Coordinator Name Role Phone Segun Coker MD Unavailable [phone] Heydi Chand Primary Care Provider [phone] Encounter Details Date Type Department Care Team (Late Contact Info) Description 06/15/2022 Abstract [facility] [address] [facility], [address] [id number] Ousmane Carlson MA Social History Tobacco Use [...] Exposure Response Date Recorded In the last 10 days, have yo u been in contact with someone who was confirmed or suspected to have Coronavirus/COVID-19? Unable to assess 06/11/2022 3:11 PM CDT documented as of this encounter Plan of Treatment Upcoming Encounters Date Type Department Care Team (Late Contact Info) Description 07/29/2025 8:00 AM GROUND OPERATIONS CREW MEMBER Appointment [place] [address] [facility] [place] [address] Reese Lomax MD [address] [facility] [address] [place] [address] 08/08/2025 9:30 AM GROUND OPERATIONS CREW MEMBER Office Visit [facility] [address] [facility] [place] [address] Reese Lomax MD [address] [facility] [address] [place] [address] 08/19/2025 1:20 PM GROUND OPERATIONS CREW MEMBER Office Visit [facility] [address] [address] Guy Gould DO [address] [facility] [address] [place] [address] documented as of this encounter Procedures Procedure Name Priority Date/Time Associated Diagnosis Comments LIPID PANEL Routine 11/25/2021 THYROID STIM HORMONE TSH Routine 11/25/2021 VITAMIN D, 25 OH Routine 11/25/2021 documented in this encounter Results * VITAMIN D, 25 OH (11/25/2021) [facility] VITAMIN D 25 HYDROXY S/P/B 28 11/25/2021 us Doc [facility] Final Result * LIPID PANEL (11/25/2021) [facility] CHOLESTEROL 195 TRIGLYCERIDES 163 HDL 42 LDL (CALCULATED) 125 NON HDL CHOLESTEROL 153 us Doc [facility] LAB[facility] Final Result * THYROID STIM HORMONE, TSH (11/25/2021) TSH 3.92 us Doc [facility] Final Result documented in this encounter Visit Diagnoses Not on filedocumented in this encounter Care Teams Ambulatory Care Coordinator Relationship Specialty Start Date End Date Heydi Chand PA [facility]. [facility] [address] [place] [address] PCP - General PHYSICIAN CATHODE MAKER 05/07/22 Segun Coker MD [facility]. [facility] [address] [place] [address] Mable Aircraft Landing Gear Inspector CARDIOVASCULAR DISEASE 07/20/17 documented as of this encounter
--- OUTSIDE RECORDS SUMMARY | 2024-11-27 15:47 | XMS_ITS | Clinical Summary ---
Author Organization [facility] Address [address] [place] [address] Care Team Providers Care Cell Tender Name Role Phone Unavailable Primary Care Provider Unavailabl e Allergies No known active allergies Medications allopurinoL (ZYLOPRIM) 300 mg tablet Take 1 Tablet by mouth daily. Active aspirin (ECOTRIN EC) 81 mg Tablet, Delayed Release (E.C.) Take 81 mg by mouth daily. Active atorvastatin (LIPITOR) 20 mg tablet Take 20 mg by mouth daily. Active cetirizine (ZyrTEC) 10 mg tablet Take 10 mg by mouth daily. Active Cholecalcifero l, Vitamin D3, 50 mcg (2,000 unit) Capsule Take by mouth daily. Active fenofibrate micronized (LOFIBRA) 134 mg Capsule Take 1 Capsule by mouth daily. Active lisinopriL (PRINIVIL) 40 mg tablet Take 40 mg by mouth daily. Active mecobalamin, vitamin B12, 1,000 mcg Tablet, Rapid Dissolve Place under tongue daily. Active metoprolol tartrate (LOPRESSOR) 25 mg tablet Take 25 mg by mouth 2 times daily. Active testosterone cypionate (DEPO-TESTOSTE DALY) 200 mg/mL Oil Inject 200 mg by intramuscular injection one time only. Active Active Problems No known active problems Encounters Date Type Department Care Team Description 11/27/2024 1:30 PM CDT [facility] [address] [place] [address] Leonardo Drummond MD Splenomegaly (Primary Dx); Leukocytosis, unspecified type 11/27/2024 Abstract [facility] [address] [place] [address] Leonardo Drummond MD from Last 3 Months Family History Medical History Relation Name Comments No Known Problems Brother 1 No Known Problems Brother 2 No Known Problems Brother 3 No Known Problems Child 1 No Known Problems Child 2 Skin Cancer Father Breast Cancer Mother Twice Diabetes Mother No Known Problems Sister Relation Name Status Comments Brother 1 Alive Brother 2 Alive Brother 3 Alive Child 1 Alive Child 2 Alive Father Mother Sister Alive Social History Tobacco Use Types Packs/Day Years Used Date Smoking Tobacco: Never Smokeless Tobacco: Never Alcohol Use Standard Drinks/Week Comments Yes 0 (1 standard drink = 0.6 oz pur e alcohol) Occasionally Sex and Gender Information Value Date Recorded Sex Assigned at Not on file Legal Sex Male 2:56 PM BACK END DEVELOPER Gender Identity Not on file Sexual Orientation Not on file Last Filed Vital Signs Vital Sign Reading Time Taken Comments Blood Pressure 122/70 11/27/2024 1:21 PM CDT Pulse 87 11/27/2024 1:21 PM CDT Temperature 36.3 C (97.4 F) 11/27/2024 1:21 PM CDT Respiratory Rate 16 11/27/2024 1:21 PM CDT Oxygen Saturation 95% 11/27/2024 1:21 PM CDT Inhaled Oxygen Concentration - - Weight 135.9 kg (299 lb 9.6 oz) 11/27/2024 1:21 PM CDT Height 177.8 cm (5' 10 ) 11/27/2024 1:21 PM CDT Body Mass Index 42.99 11/27/2024 1:21 PM CDT Plan of Treatment Upcoming Encounters Date Type Department Care Team (Late st Contact Info) Description 12/12/2024 4:15 PM CDT Telephone Check Up [facility]ology - [place] [address] [facility] [address] [place] [address] Leonardo Drummond MD [address] [facility] [address] [place] [address] Health Maintenance Due Date Last Done Comments DTAP/TDAP/TD VACCINES (1 - Tdap) 1987 HEPATITIS B VACCINES (1 of 3 - 19+ 3-dose series) 04/1987 FIT-DNA Q 3 years 2013 FIT/FOBT Q 1 year 2013 Flex Sig/CT Colonography Q 5 years 2013 ZOSTER VACCINE (1 of 2) 2018 INFLUENZA VACCINE (#1) 2024 Preventative Visit- Commercial 09/19/2024 COLORECTAL SCREENING 04/09/2029 04/09/2019 Colorectal Cancer Screening 04/09/2029 Insurance [facility] BLUE ACCESS CHOICE
--- OUTSIDE RECORDS SUMMARY | 2024-11-27 15:47 | XMS_ITS | Encounter Summary ---
Author Organization [facility] Address [address] [place] [address] Care Team Providers Care Electric Sign Assembler Name Role Phone Unavailable Primary Care Provider Unavailabl e Reason for Referral * Laboratory Services (Routine) - Open Specialty Diagnoses / Procedures Referred By Contac t Referred To Contact Diagnoses Leukocytosis, unspecified type Procedures BCR/ABL1, MONITORING QUANTITATIVE Leonardo Drummond MD [address] [place] [address] Phone: tel: fax: Referral ID Status Reason Start Date Expiration Date Visits Re quested Visits Authorized [id number] Open 11/27/2024 12/28/2025 1 1 Reason for Visit * Reason Comments Establish Care Encounter Details Date Type Department Care Team (Late st Contact Info) Description 11/27/2024 1:30 PM CDT Office Visit [facility] Oncology and Hematology - [place] [address] [place] [address] Leonardo Drummond MD [address] [place] [phone] Splenomegaly (Primary Dx); Leukocytosis, unspecified type Social History Tobacco Use Types Packs/Day Years Used Date Smoking Tobacco: Never Smokeless Tobacco: Never Alcohol Use Standard Drinks/Week Comments Yes 0 (1 standard drink = 0.6 oz pur e alcohol) Occasionally Sex and Gender Information Value Date Recorded Sex Assigned at Not on file Legal Sex Male 2:56 PM SHIRT SORTER Gender Identity Not on file Sexual Orientation Not on file documented as of this encounter Last Filed Vital Signs Vital Sign Reading [...] Mass Index 42.99 11/27/2024 1:21 PM CDT documented in this encounter Progress Notes * Leonardo Drummond MD - 11/27/2024 1:58 PM CDT Hematology-oncology consult Note Requesting Physician Primary Care Physician No primary care provider on file. Problem list There is no problem list on file for this patient. Previous TREATMENT ? Measurable Disease ? Reason for Visit Kiran Haley is a 54 y.o. male who was referred for consultation for splenomegaly. History of present illness This is a 54-year-old obese male with history of gout, hyperlipidemia, hypertension and hypertriglyceridemia referred to me for splenomegaly. Patient has a history of kidney stone and underwent lithotripsy on September 26, 2024. Prior to the lithotripsy he had CT scan done on September 20, 2024that showed splenomegaly with a spleen of 14 cm in size. Liver were also enlarged at 22 cm. He denies any history of malignancy. Denies any night sweats and hot flashes. He does have some chills. He has gained 50 pound weight in last 10 years. He denies any melena hematochezia. No other bleeding complaints. No new lumps bumps or lymphadenopathy. Weight is recently stable. He drinks alcohol occasionally. No other new complaints. Past Medical History Past Medical History: Diagnosis Date Hyperlipidemia Hypertension Gout Kidney stone Surgical History Past Surgical History: Procedure Laterality Date HX KIDNEY STONE SURGERY Medications Current Outpatient Medications Medication Sig Dispense Refill allopurinoL (ZYLOPRIM) 300 mg tablet Take 1 Tablet by mouth daily. atorvastatin (LIPITOR) 20 mg tablet Take 20 mg by mouth daily. cetirizine (ZyrTEC) 10 mg tablet Take 10 mg by mouth daily. Cholecalciferol, Vitamin D3, 50 mcg (2,000 unit) Capsule Take by mouth daily. fenofibrate micronized (LOFIBRA) 134 mg Capsule Take 1 Capsule by mouth daily. mecobalamin, vitamin B12, 1,000 mcg Tablet, Rapid Dissolve Place under tongue daily. testosterone cypionate (DEPO-TESTOSTERONE) 200 mg/mL Oil Inject 200 mg by intramuscular injection one time only. aspirin (ECOTRIN EC) 81 mg Tablet, Delayed Release (E.C.) Take 81 mg by mouth daily. lisinopriL (PRINIVIL) 40 mg tablet Take 40 mg by mouth daily. metoprolol tartrate (LOPRESSOR) 25 mg tablet Take 25 mg by mouth 2 times daily. No current facility-administered medications for this visit. Allergies No Known Allergies Immunizations: There is no immunization history on file for this patient. Family History Family History Problem Relation Name Age of Onset Skin Cancer Father Breast Cancer Mother Twice Diabetes Mother No Known Problems Brother No Known Problems Brother No Known Problems Brother No Known Problems Sister No Known Problems Child No Known Problems Child Social History Social History Tobacco Use Smoking status: Never Smokeless tobacco: Never Substance Use Topics Alcohol use: Yes Comment: Occasionally Review of Systems Constitutional: Patient did not mention fever; no night sweats; no anorexia; no weight loss; no fatique NEENT: Patient did not mention headache; no change in vision; no change in hearing; no sore throat;no dysphagia Respiratory: Patient did not mention shortness of breath; no pleuritic chest pain; no cough; no hemoptysis Cardiac: Patient did not mention cardiac-like chest pain; no palpitations; no orthopnea; no PND; noDOE GI: Patient did not mention abdominal pain; no nausea; no vomiting; no diarrhea; no hematochezia; no melena : Patient did not mention dysuria; no frequency; no hesitancy; no hematuria CORPORATE COUNSELOR: Musculosketetal: Patient did not mention bone pain; no arthralgia; no joint swelling; no myalgia; Skin: Patient did not mention pruritis; no rash; no petechiae; no ecchymoses Endocrine: Patient did not mention polydipsia; no polyuria; no unusual weight gain Neuro: Patient did not mention headache; no change in vision; no sensory changes; no muscle weakness; no confusion; no seizures Psych: Patient did not mention anxiety; no depression; Physical Exam Vitals: As per nursing note Constitutional: Well developed, well nourished, no acute distress, non-toxic appearance Teeth and gum. No signs of infection or swelling. Eyes: PERRL, conjunctiva normal HEENT: Atraumatic, external ears normal, nose normal, oropharynx moist, no pharyngeal exudates. no sinus tenderness Neck- normal range of motion, no tenderness, supple Respiratory: No respiratory distress, normal breath sounds, no rales, no wheezing Cardiovascular: Normal rate, normal rhythm, no murmurs, no gallops, no rubs GI: Soft, nondistended, normal bowel sounds, nontender, no splenomegaly, no hepatomegaly, no mass, no rebound, no guarding : No costovertebral angle tenderness Musculoskeletal: No edema, no tenderness, no deformities. Back- no tenderness Integument: Well hydrated, no rash, Digits and nails inspection normal Lymphatic: No lymphadenopathy noted Neurologic: Alert & oriented x 3, CN 2-12 normal, normal motor function, normal sensory function, no focal deficits noted Psychiatric: Speech and behavior appropriate ? labs No results found for this or any previous visit (from the past 24 hours). Labs from September 21, 2024 showed total bilirubin 0.5 AST 34 ALT 53 creatinine 1.8 WBC 6.1 hemoglobin 14.8 platelet 202,000 neutrophils 63% lymphocyte 17% Pathology ? Imaging & Other Studies Performance Status? Assessment / Plan: ? Hepatosplenomegaly. Patient is a 54-year-old obese male with history of gout, hyperlipidemia and hypertension who had CT scan done on September 20, 2024 to evaluate the kidney stone showed hepatosplenomegaly with spleen size of 14 cm. Patient had lithotripsy done on September 26. Patient deniesany night sweats and hot flashes. He had some chills. Denies any abdominal pain. He has gained 50 pound weight in last 10 years. Recent weight is stable. On my examination there is no evidence of lymphadenopathy. I have discussed the differential diagnosis of hepatosplenomegaly with the patient. I will order workup for lymphoproliferative disorder that would include flow cytometric analysis for ly mphoma as well as BCR-ABL translocation by PCR testing. We will check testing for sarcoidosis with angiotensin-converting enzyme as well as mononucleosis with EBV serology. I will check CBC and CMP. Based on the initial testing we will perform further workup. I have recommended regular exercise andweight loss. I have answered all the questions to patient satisfaction. Hyperlipidemia. He is on Lipitor. Hypertension. Patient is on lisinopril. Gout. Patient is on allopurinol. Testosterone deficiency. He is on testosterone replacement therapy. Thank you very much for allowing me to participate in iKran Haley's evaluation and management. Please feel free to contact if I can be of any further assistance in your patient???s care requiring hematology or oncology evaluation. Sincerely, ? ? Leonardo Drummond M.D. cell TOBACCO COUNSELING He is not a tobacco/nicotine user. Leonardo Drummond MD ,11/27/2024 1:58 PM ? Total time spent 60 minutes, two third of the total time spent counseling patient [id number]. CC:? documented in this encounter Plan of Treatment Upcoming Encounters Date Type Department Care Team (Late st Contact Info) Description 12/12/2024 4:15 PM CDT Telephone Check Up [facility] Oncology and Hematology - [place] [address] [facility] [address] [place] [address] Leonardo Drummond MD [address] [facility] [address] [place] [address] Scheduled Orders Name Type Priority Associated Diagnoses Orde r Schedule CBC WITH DIFFERENTIAL Lab Stat Leukocytosis, unspecified type Expected: 11/27/2024, Expires: 11/27/2025 COMPREHENSIVE METABOLIC PANEL Lab Stat Leukocytosis, unspecified type Expected: 11/27/2024, Expires: 11/27/2025 FLOW CYTOMETRY PANEL Lab Routine Leukocytosis, unspecified type Expected: 11/27/2024, Expires: 11/27/2025 BCR/ABL1, MONITORING QUANTITATIVE Lab Routine Leukocytosis, unspecified type Expected: 11/27/2024, Expires: 11/27/2025 ANGIOTENSIN CONVERTING ENZYME Lab Routine Splenomegaly Ordered: 11/27/2024 MONONUCLEOSIS SCREEN W/REFLEX EBV AB Lab Routine Splenomegaly Ordered: 11/27/2024 documented as of this encounter Visit Diagnoses Diagnosis Splenomegaly- Primary Leukocytosis, unspecified type documented in this encounter
--- OUTSIDE RECORDS SUMMARY | 2024-11-27 15:47 | XMS_ITS | Encounter Summary ---
Author Organization [facility] Address [facility] [place] [address] Care Team Providers Care Deck Builder Name Role Phone Wang Barth MD Primary Care Provider [phone] Segun Coker MD Unavailable [phone] Heydi Chand Primary Care Provider [phone] Encounter Details Date Type Department Care Team (Late st Contact Info) Description 07/20/2017 Abstract [facility] AT [address] [address] Ousmane Carlson MA Social History Tobacco Use Types Packs/Day Years Used Date Smoking Tobacco: Never Assessed Sex and Gender Information Value Date Recorded Sex Assigned at Not on file Legal Sex Male 10:02 PM CDT Gender Identity Not on file Sexual Orientation Not on file documented as of this encounter Progress Notes * IVAN Gambino - 07/22/2017 2:11 PM CDT Labs were from 4 days ago. Patient seen as new consult yesterday. Labs addressed and further testing ordered. documented in this encounter Plan of Treatment Upcoming Encounters Date Type Department Care Team (Late st Contact Info) Description 07/29/2025 8:00 AM LABORER TURKEY FARM Appointment [facility] [address] [place] [address] Reese Lomax MD [address] [facility] [address] [place] [address] 08/08/2025 9:30 AM LABORER TURKEY FARM Office Visit [facility] [address] [place] [address] Reese Lomax MD [address] [facility] [place] [address] 08/19/2025 1:20 PM LABORER TURKEY FARM Office Visit [facility] [address] [phone] Guy Gould DO [address] [facility] [address] [place] [address] documented as of this encounter Procedures Procedure Name Priority Date/Time Associated Diagnosis Comments VITAMIN B-12 Routine 07/18/2017 TRIIODOTHYRONINE TOTAL , TT-3 Routine 07/18/2017 COMPREHENSIVE METABOLIC PANEL Routine 07/18/2017 LIPID PANEL Routine 07/18/2017 THYROXINE, FREE (FT4) Routine 07/18/2017 THYROID STIM HORMONE TSH Routine 07/18/2017 VITAMIN D, 25 OH Routine 07/18/2017 MAGNESIUM Routine 07/18/2017 documented in this encounter Results * VITAMIN D, 25 OH (07/18/2017) VITAMIN D 25 HYDROXY S/P/B 25 07/18/2017 [facility] Final Result * VITAMIN B-12 (07/18/2017) VITAMIN B12 S/P/B 381 07/18/2017 [facility] LAB[facility] Edited Resul t - Final * TRIIODOTHYRONINE TOTAL , TT-3 (07/18/2017) T3 97 07/18/2017 [facility] Final Result * THYROXINE, FREE (FT4) (07/18/2017) FREE T4 1.0 07/18/2017 [facility] Final Result * THYROID STIM HORMONE, TSH (07/18/2017) TSH 3.34 07/18/2017 Doc [facility] LABOR[facility] Final Result * MAGNESIUM (07/18/2017) MAGNESIUM 1.9 07/18/2017 [facility] Final Result * (ABNORMAL) COMPREHENSIVE METABOLIC PANEL (07/18/2017) SODIUM S/P/B 142 POTASSIUM S/P/B 4.4 CO2 24 CHLORIDE S/P/B 110 GLUCOSE 96 mg/dL CALCIUM S/P/B 9.8 BUN 14 CREATININE S/P/B 0.97 0.7 - 1.3 EGFR AFR. AMER. 106 EGFR NON-AFR. AMER. 91(A) <=90 ALKALINE PHOSPHATASE S/P/B 47 ALT 37 AST 47 BILIRUBIN TOTAL S/P/B 0.4 ALBUMIN S/P/B 4.5 3.5 - 5.0 TOTAL PROTEIN S/P/B 7.3 GLOBULIN 2.8 07/18/2017 [facility] LAB[facility] Final Result * LIPID PANEL (07/18/2017) CHOLESTEROL 167 HDL 41 TRIGLYCERIDES 155 NON HDL CHOLESTEROL 126 LDL (CALCULATED) 100 07/18/2017 [facility] LAB[facility] Final Result documented in this encounter Visit Diagnoses Not on filedocumented in this encounter Additional Health Concerns Infection Onset Date Last Indicated Resolved Time COVID-19 Rule Out 01/30/2022 01/30/2022 01/30/2022 8:45 PM CDT documented as of this encounter Care Teams Deck Builder Relationship Specialty Start Date End Date Wang Barth MD PCP - General INTERNAL MEDICINE 07/11/17 05/06/22 Heydi Chand PA [address] [facility] [address] PCP - General PHYSICIAN ULTRASOUND SPECIALIST 05/07/22 Segun Coker MD [address] [facility] [address] [place] [address] [place] Reach Truck Operator CARDIOVASCULAR DISEASE 07/20/17 documented as of this encounter
--- OUTSIDE RECORDS SUMMARY | 2024-11-27 15:47 | XMS_ITS | Encounter Summary ---
Author Organization [facility] Address [facility] [place] [address] Care Team Providers Care Vinegar Maker Name Role Phone Wang Barth MD Primary Care Provider [phone] Segun Coker MD Unavailable Heydi Chand Primary Care Provider [phone] Encounter Details Date Type Department Care Team (Late st Contact Info) Description 11/10/[address] [facility] [address] [address] Zion Hampton MD Three [facility]. [address] [place] [address] Social History Tobacco Use Types Packs/Day Years [...] or suspected to have Coronavirus / COVID-19? No / Unsure 11/11/2020 11:02 AM DOUGH MOLDER HAND documented as of this encounter Plan of Treatment Upcoming Encounters Date Type Department Care Team (Late st Contact Info) Description 07/29/2025 8:00 AM DOUGH MOLDER HAND Appointment [place] [address] Reese Lomax MD [address] [facility] [address] [place] [address] 08/08/2025 9:30 AM DOUGH MOLDER HAND Office Visit [facility] [address] [facility] [place] [address] Reees Lomax MD [address] [facility] [address] [place] [address] 08/19/2025 1:20 PM DOUGH MOLDER HAND Office Visit [facility] [address] [phone] Guy Gould DO [address] [facility] [place], [place] [address] documented as of this encounter Visit Diagnoses Not on filedocumented in this encounter Additional Health Concerns Infection Onset Date Last Indicated Resolved Time COVID-19 Rule Out 01/30/2022 01/30/2022 01/30/2022 8:45 PM CDT documented as of this encounter Care Teams Vinegar Maker Relationship Specialty Start Date End Date Wang Barth MD PCP - General INTERNAL MEDICINE 07/11/17 05/06/22 Heydi Chand PA Three [facility]. [address] [place] [address] PCP - General PHYSICIAN SAFETY DEPOSIT CLERK 05/07/22 Segun Coker MD Three [facility]. [address] [address] [facility] Technician CARDIOVASCULAR DISEASE 07/20/17 documented as of this encounter
--- OUTSIDE RECORDS SUMMARY | 2024-11-27 15:47 | XMS_ITS | Encounter Summary ---
Author Organization [facility] Address [facility] [place] [address] Care Team Providers Care Addressing Machine Operator Name Role Phone Segun Coker MD Unavailable [phone] Heydi Chand Primary Care Provider [phone] Encounter Details Date Type Department Care Team (Late st Contact Info) Description 08/10/2024 [employer] [address] [place] [id number] [place] [address], [facility] Provider Action Needed Social History Tobacco Use Types Packs/Day Years [...] file Not on file Not on file documented as of this encounter Plan of Treatment Upcoming Encounters Date Type Department Care Team (Late Contact Info) Description 07/29/2025 8:00 AM METAL ROOFING MECHANIC Appointment [place] [address] [place], [place] [phone] Reese Lomax MD [address] [facility] [address] [place], [place] [phone] 08/08/2025 9:30 AM METAL ROOFING MECHANIC Office Visit [facility] [address] [facility] [place] [address] Reese Lomax MD [address] [facility] [address] [place] [address] 08/19/2025 1:20 PM METAL ROOFING MECHANIC Office Visit [facility] [address] [address] Guy Gould DO [address] [facility] [address] [place] [address] documented as of this encounter Visit Diagnoses Not on filedocumented in this encounter Additional Health Concerns Assessment Noted Time PHQ-9 Depression Total Score: 0 12/09/19 24 12:50 PM CDT documented as of this encounter Care Teams Addressing Machine Operator Relationship Specialty Start Date End Date Heydi Chand PA Three [facility]. [facility] [address] [place] [address] PCP - General PHYSICIAN LOG CARRIER OPERATOR 05/07/22 Segun Coker MD [facility]. [facility] [address] [place] [address] [place] [facility] Worker CARDIOVASCULAR DISEASE 07/20/17 documented as of this encounter
--- OUTSIDE RECORDS SUMMARY | 2024-11-27 15:47 | XMS_ITS | Encounter Summary ---
Author Organization [facility] Address [facility] [place] [address] Care Team Providers Care Environmental Restoration Planner Name Role Phone Segun Coker MD Unavailable [phone] Heydi Chand Primary Care Provider [phone] Encounter Details Date Type Department Care Team (Late st Contact Info) Description 06/05/2024 [employer] Message [facility] Patient Accounts [address] [place] [address] [facility] Provider Action Required Social History Tobacco Use Types Packs/Day Years Used Date Smoking Tobacco: Never Smokeless Tobacco: Never Alcohol Use Standard Drinks/Week Comments Yes 0 (1 standard drink = 0.6 oz pur e alcohol) 1/week PHQ-2 Answer Date Recorded Patient Health Questionnaire-2 [...] st Contact Info) Description 07/29/2025 8:00 AM MANAGER CARDIOLOGY Appointment [facility] [address] [place], [place] [address] Reese Lomax MD [address] [facility] [address] [place] [address] 08/08/2025 9:30 AM MANAGER CARDIOLOGY Office Visit [facility] THREE [facility] [address] [place] [address] Reese Lomax MD 3 [facility] [address] [place] [address] 08/19/2025 1:20 PM MANAGER CARDIOLOGY Office Visit [facility] - [address] [address] Guy Gould DO [address] [facility] [address] [place] [address] documented as of this encounter Visit Diagnoses Not on filedocumented in this encounter Additional Health Concerns Assessment Noted Time PHQ-9 Depression Total Score: 0 12/09/19 24 12:50 PM CDT documented as of this encounter Care Teams Environmental Restoration Planner Relationship Specialty Start Date End Date Heydi Chand PA [facility]. [facility] [address] [place] [address] PCP - General PHYSICIAN DIABETOLOGIST 05/07/22 Segun Coker MD [facility]. [facility] [address] [place] [address] [place] Case Operator CARDIOVASCULAR DISEASE 07/20/17 documented as of this encounter
--- OUTSIDE RECORDS SUMMARY | 2024-11-27 15:47 | XMS_ITS | Encounter Summary ---
Author Organization [facility] Address [facility] [place] [address] Care Team Providers Care Licensed Mental Health Professional Name Role Phone Wang Barth MD Primary Care Provider [phone] Segun Coker MD Unavailable [phone] Heydi Chand Primary Care Provider [phone] Encounter Details Date Type Department Care Team (Late st Contact Info) Description 11/17/2020 Abstract [facility] [address] Ousmane Carlson MA Social History Tobacco Use [...] COVID-19? No / Unsure 11/11/2020 11:02 AM BIOCHEMIST documented as of this encounter Plan of Treatment Upcoming Encounters Date Type Department Care Team (Late st Contact Info) Description 07/29/2025 8:00 AM BIOCHEMIST Appointment [place] [address] [facility] [place] [address] Reese Lomax MD [address] [facility] [address] [place] [address] 08/08/2025 9:30 AM BIOCHEMIST Office Visit [facility] [address] [facility] [address] [place] [address] Reese Lomax MD [address] [facility] [address] [place] [address] 08/19/2025 1:20 PM BIOCHEMIST Office Visit [facility] [address] [address] Guy Gould DO [address] [facility] [place] [address] documented as of this encounter Procedures Procedure Name Priority Date/Time Associated Diagnosis Comments BUN (OUTSIDE LAB) Routine 11/14/2020 HEMATOCRIT Routine 11/14/2020 CREATININE Routine 11/14/2020 documented in this encounter Results * CREATININE (11/14/2020) CREATININE S/P/B 1.13 0.7 - 1.3 EGFR NON-AFR. AMER. 74 <=90 EGFR AFR. AMER. 86 <=90 11/14/2020 [facility] LAB[facility] Edited Resul t - Final * BUN (OUTSIDE LAB) (11/14/2020) BUN 16 7 - 25 11/14/2020 us [facility] Abstract LAB-OUTSIDE/ABSTRACTED Edite d Result - Final * HEMATOCRIT (11/14/2020) HCT 49.3 11/14/2020 us [facility] Final Result documented in this encounter Visit Diagnoses Not on filedocumented in this encounter Additional Health Concerns Infection Onset Date Last Indicated Resolved Time COVID-19 Rule Out 01/30/2022 01/30/2022 01/30/2022 8:45 PM CDT documented as of this encounter Care Teams Licensed Mental Health Professional Relationship Specialty Start Date End Date Wang Barth MD PCP - General INTERNAL MEDICINE 07/11/17 05/06/22 Heydi Chand PA [facility]. [facility] [address] [place] [address] PCP - General PHYSICIAN DISEASE CASE MANAGER 05/07/22 Segun Coker MD [facility]. [facility] [address] [place] [address] [place] System Support Specialist CARDIOVASCULAR DISEASE 07/20/17 documented as of this encounter
[2024-11-27 16:29] LABS: Monoscreen Negative (Negative)
[2024-11-27 16:30] LABS: Negative Monotest Control Negative (Negative); Positive Monotest Control Positive (Positive); Sodium 145 mmol/L (137-145)
[2024-11-27 16:37] LABS: Alanine Aminotransferase 70 U/L (6-50); Albumin Level 4.5 g/dL (3.5-5.1); Alkaline Phosphatase 60 U/L (38-126); Anion Gap 10 mmol/L (4-12); Aspartate Amino Transferase 55 U/L (17-59); Bilirubin,Total 0.6 mg/dL (0.2-1.3); Blood Urea Nitrogen 24 mg/dL (9-20); Carbon Dioxide 26 mmol/L (22-30); Chloride 109 mmol/L (98-107); Estimated Glomerular Filt Rate 57; Glucose 102 mg/dL (65-110); Potassium 4.3 mmol/L (3.4-5.0)
[2024-11-29 16:28] LABS: Angiotensin Converting Enzyme 6 U/L (9-67)
== END 2024-11-27 13:57 | disposition home or self-care (01) ==
LOC: ANHLAB 13:58
PROVIDERS: PCP Physician Assistant Medical; Visit Provider Internal Medicine Hematology & Oncology
DX: R16.1 Splenomegaly, not elsewhere classified (principal)
CPT/HCPCS: 36415; 80053; 82164; 85025; 86308; 86664; 86665; 88184

== ENCOUNTER 2025-06-17 10:38 | Outpatient (CLI) | payer BC, SELFPAY ==
[2025-06-17 10:55] LABS: Hematocrit 50.1 % (42.0-52.0); Hemoglobin 16.1 g/dL (14.0-18.0); Immature Granulocyte Percent A 0.4 % (0-0.5); Lymphocytes Absolute Auto 2.28 K/mm3 (0.9-3.2); Mean Corpuscular HGB Conc 32.1 g/dl (32-36); Mean Corpuscular Hemoglobin 27.0 pg (26-34); Mean Corpuscular Volume 84.1 fl (80-100); Nucleated Red Blood Cells Absolute Auto 0.000 K/mm3 (0.0-0.012); Nucleated Red Blood Cells Perc 0.0 % (0.0-0.2); Platelet Count Result 264 k/mm3 (150-375); Red Blood Count 5.96 M/mm3 (4.6-6.20); White Blood Count 9.8 K/mm3 (4.5-10.0)
--- OUTSIDE RECORDS SUMMARY | 2025-06-17 11:00 | XMS_ITS | Encounter Summary ---
Author Organization [facility] [email or web address] [facility] Address [address] [place] [address] Care Team Providers Care Professor Of Art History Name Role Phone Unavailable Primary Care Provider Unavailabl e Encounter Details Date Type Department Care Team (Late st Contact Info) Description 06/17/2025 11:00 AM CDT Office Visit [facility] Oncology and Hematology - [place] [address] [facility] [address] [place] [address] Leonardo Drummond MD [address] [facility] [address] [place] [address] Arrived Social History Tobacco Use Types Packs/Day Years Used Date Smoking Tobacco: Never Smokeless Tobacco: Never Alcohol Use Standard Drinks/Week Comments Yes 0 (1 standard drink = 0.6 oz pur e alcohol) Occasionally Sex and Gender Information Value Date Recorded Sex Assigned at Not on file 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 Gender Identity Not on file Sexual Orientation Not on file documented as of this encounter Last Filed Vital Signs Vital Sign Reading Time Taken Comments Blood Pressure 145/89 06/17/2025 11:09 AM CDT Pulse 60 06/17/2025 11:01 AM CDT Temperature 36.1 C (97 F) 06/17/2025 11:01 AM CDT Respiratory Rate 16 06/17/2025 11:0 1 AM CDT Oxygen Saturation 95% 06/17/2025 11: 01 AM CDT Inhaled Oxygen Concentration - - Weight 135.7 kg (299 lb 3.2 oz) 025 11:01 AM CDT Height - - Body Mass Index 42.93 11/27/2024 1:21 PM CDT documented in this encounter Plan of Treatment Not on file documented as of this encounter Visit Diagnoses Not on filedocumented in this encounter
--- OUTSIDE RECORDS SUMMARY | 2025-06-17 11:14 | XMS_ITS | Encounter Summary ---
Author Organization [facility] Address [facility] [place] [address] Care Team Providers Care Operations And Maintenance Technican Name Role Phone Wang Barth MD Primary Care Provider [phone] Segun Coker MD Unavailable [phone] Heydi Chand Primary Care Provider [phone] Encounter Details Date Type Department Care Team (Late st Contact Info) Description 08/05/2020 Abstract [facility] at [address] [address] Ousmane Carlson MA Social History [...] COVID-19? Unable to assess 08/01/2020 1:59 PM JEWEL SORTER documented as of this encounter Plan of Treatment Upcoming Encounters Date Type Department Care Team (Late st Contact Info) Description 07/29/2025 8:00 AM JEWEL SORTER Appointment [facility] [address] [place] [address] Reese Lomax MD 3 [facility] [address] [place] [address] 08/08/2025 9:30 AM JEWEL SORTER Office Visit [facility] [address] [facility] [address] [place] [address] Reese Lomax MD 3 [facility] [address] [place] [address] 08/19/2025 1:20 PM JEWEL SORTER Office Visit [facility] [address] [address] Guy Gould DO [address] [place] [address] documented as of this encounter Procedures Procedure [...] Result * CBC (OUTSIDE LAB) (01/24/2020) Pathologist [facility] WBC 9.8 HGB 14.8 HCT 46.6 PLT 297 01/24/2020 us Doc [facility] Abstract LAB-OUTSIDE/ABSTRACTED Final Result * URIC ACID BLOOD (01/24/2020) [facility] URIC ACID 5.6 01/24/2020 us Doc [facility] Abstract LABORATORY Final Result * VITAMIN D, 25 OH (01/24/2020) [facility] VITAMIN D 25 HYDROXY S/P/B 29 01/24/2020 us Doc [facility] Abstract LABORATORY Final Result * MAGNESIUM (01/24/2020) [facility] MAGNESIUM 1.9 1.5 - 2.5 01/24/2020 us Doc [facility] Abstract LABORATORY Final Result * (ABNORMAL) COMPREHENSIVE METABOLIC PANEL (01/24/2020) [facility] SODIUM S/P/B 140 POTASSIUM S/P/B 4.6 CO2 [...] documented as of this encounter Care Teams Operations And Maintenance Technican Relationship Specialty Start Date End Date Wang Barth MD PCP - General INTERNAL MEDICINE 07/11/17 05/06/22 Heydi Chand PA [address] [facility] [address] [place], [place] [id number] PCP - General PHYSICIAN ACID ETCH OPERATOR 05/07/22 Segun Coker MD [address] [facility] [address] [place] [address] Mable Materials And Processes Manager CARDIOVASCULAR DISEASE 07/20/17 documented as of this encounter
--- OUTSIDE RECORDS SUMMARY | 2025-06-17 11:14 | XMS_ITS | Encounter Summary ---
Author Organization [facility] Address [facility] [place] [address] Care Team Providers Care Rn Oncology Clinical Name Role Phone Segun Coker MD Unavailable [phone] Heydi Chand Primary Care Provider [phone] Encounter Details Date Type Department Care Team (Late st Contact Info) Description 08/10/2024 [employer] Business Office [address] [place] [id number] [place] [address], [facility] Provider Action Needed Social History Tobacco Use [...] (Late Contact Info) Description 07/29/2025 8:00 AM CIRCULATION SALES REPRESENTATIVE Appointment [address] [place], [place] [id number] Reese Lomax MD 3 [facility] [address] [place], [place] [id number] 08/08/2025 9:30 AM CIRCULATION SALES REPRESENTATIVE Office Visit [facility] [address] [facility] [place] [address] Reese Lomax MD 3 [facility] [address] [place] [address] 08/19/2025 1:20 PM CIRCULATION SALES REPRESENTATIVE Office Visit [facility] [address] [address] Guy Gould DO 3 [facility] [address] [place] [address] documented as of this encounter Visit Diagnoses Not on filedocumented in this encounter Additional Health Concerns Assessment Noted Time PHQ-9 Depression Total Score: 0 12/09/19 24 12:50 PM CDT documented as of this encounter Care Teams Rn Oncology Clinical Relationship Specialty Start Date End Date Heydi Chand PA Three [facility]. [facility] [address] [place] [address] PCP - General PHYSICIAN INTERNET TECHNOLOGY MANAGER 05/07/22 Segun Coker MD [facility] [address] [place] [address] [place] Boiler Testing Technician CARDIOVASCULAR DISEASE 07/20/17 documented as of this encounter
--- OUTSIDE RECORDS SUMMARY | 2025-06-17 11:14 | XMS_ITS | Encounter Summary ---
Author Organization [facility] Address [facility] [place] [address] Care Team Providers Care Larry Car Operator Name Role Phone Segun Coker MD Unavailable [phone] Heydi Chand Primary Care Provider [phone] Encounter Details Date Type Department Care Team (Late st Contact Info) Description 06/05/2024 Deli[employer] Message [facility] Patient Accounts [address] [place] [address] [facility] Provider Action Required Social History Tobacco Use [...] st Contact Info) Description 07/29/2025 8:00 AM NEWSPAPER EDITOR MANAGING Appointment [facility] [address] [place], [place] [address] Reese Lomax MD 3 [facility] [address] [place] [address] 08/08/2025 9:30 AM NEWSPAPER EDITOR MANAGING Office Visit [facility] THREE [facility] [address] [place] [address] Reese Lomax MD 3 [facility] [address] [place] [address] 08/19/2025 1:20 PM NEWSPAPER EDITOR MANAGING Office Visit [facility] - [address] [address] Guy Gould DO 3 [facility] [address] [place] [address] documented as of this encounter Visit Diagnoses Not on filedocumented in this encounter Additional Health Concerns Assessment Noted Time PHQ-9 Depression Total Score: 0 12/09/19 24 12:50 PM CDT documented as of this encounter Care Teams Larry Car Operator Relationship Specialty Start Date End Date Heydi Chand PA [facility]. [facility] [address] [place] [address] PCP - General PHYSICIAN ONLINE PROJECT MANAGER 05/07/22 Segun Coker MD [facility]. [facility] [address] [place] [address] [place] Circus Agent CARDIOVASCULAR DISEASE 07/20/17 documented as of this encounter
--- OUTSIDE RECORDS SUMMARY | 2025-06-17 11:14 | XMS_ITS | Encounter Summary ---
Author Organization [facility] Address [facility] [place] [address] Care Team Providers Care Grain Picker Name Role Phone Wang Barth MD Primary Care Provider [phone] Segun Coker MD Unavailable [phone] Heydi Chand Primary Care Provider [phone] Encounter Details Date Type Department Care Team (Late st Contact Info) Description 07/20/2017 Abstract [facility] AT [address] [address] Ousmane Carlson MA Social History [...] st Contact Info) Description 07/29/2025 8:00 AM CERAMIST Appointment [facility] [address] [place] [address] Reese Lomax MD [address] [facility] [address] [place] [address] 08/08/2025 9:30 AM CERAMIST Office Visit [facility] [address] [place] [address] Reese Lomax MD [address] [facility] [address] [place] [address] 08/19/2025 1:20 PM CERAMIST Office Visit [facility] [address] [phone] Guy Gould DO [address] [facility] [address] [place] [address] documented as of this encounter Procedures Procedure [...] documented as of this encounter Care Teams Grain Picker Relationship Specialty Start Date End Date Wang Barth MD PCP - General INTERNAL MEDICINE 07/11/17 05/06/22 Heydi Chand PA [address] [facility] [address] [address] PCP - General PHYSICIAN PLANNER CHIEF 05/07/22 Segun Coker MD [address] [facility] [address] [place] [address] [place] Oracle Sql Developer CARDIOVASCULAR DISEASE 07/20/17 documented as of this encounter
--- OUTSIDE RECORDS SUMMARY | 2025-06-17 11:14 | XMS_ITS | Clinical Summary ---
Author Organization [facility] Leonardo ortiz Edi Address [address] [place] [address] Care Team Providers Care Bridge Ironworker Helper Name Role Phone Unavailable Primary Care Provider [...] Encounters Date Type Department Care Team Description 06/17/2025 11:00 AM CDT Office Visit [facility] Oncology and Hematology - [place] [address] [place] [address] Leonardo Drummond MD Arrived from Last 3 Months Family History Medical [...] on file Legal Sex Male 2:56 PM BIOCHEMISTRY TECHNICIAN Gender Identity Not on file Sexual Orientation [...] 3.2 oz) 025 11:01 AM CDT Height 177.8 cm (5' 10) 11/27/2024 1:21 PM CDT Body Mass Index 42.93 11/27/2024 1:21 PM CDT Plan of Treatment Health Maintenance Due Date Last Done Comments Pre-Diabetes and Diabetes Screening 1968 DTAP/TDAP/TD VACCINES (1 - Tdap) 1987 HEPATITIS B VACCINES (1 of 3 - 19+ 3-dose series) 04/1987 FIT-DNA Q 3 years 2013 FIT/FOBT Q 1 year 2013 Flex Sig/CT Colonography Q 5 years 2013 ZOSTER VACCINE (1 of 2) 2018 Preventative Visit- Commercial 09/19/2024 INFLUENZA VACCINE (#1) 2025 COLORECTAL SCREENING 04/09/2029 04/09/2019 Colorectal Cancer Screening 04/09/2029 Insurance [facility]
--- OUTSIDE RECORDS SUMMARY | 2025-06-17 11:14 | XMS_ITS | Clinical Summary ---
Author Organization [facility] Address [facility] [place] [address] Care Team Providers Care Federal Court Of Appeals Law Clerk Name Role Phone Segun Coker MD Unavailable [phone] Heydi Chand Primary Care Provider [phone] Allergies No known active allergies Medications fenofibrate [...] Comments Blood Pressure 132/90 08/20/2024 1:[address] ENGINEER Pulse 85 08/20/2024 1:[address] ENGINEER Temperature 36.8 C (98.2 F) 08/20/2024 1:[address] ENGINEER Respiratory Rate 18 08/20/2024 1:[address] ENGINEER Oxygen Saturation 97% 08/20/2024 1:[address] ENGINEER RA Inhaled Oxygen Concentration - - Weight 141.1 kg (311 lb) 08/20/2024 1:[address] ENGINEER Height 177.8 cm (5' 10) 08/20/2024 1:[address] ENGINEER Body Mass Index 44.62 08/20/2024 1:[address] ENGINEER Plan of Treatment Upcoming Encounters Date Type Department Care Team (Late st Contact Info) Description 07/29/2025 8:[address] ENGINEER [place] [address] Reese Lomax MD 3 [facility] [address] [place] [address] 08/08/2025 9:[address] ENGINEER Office Visit [facility] [address] [facility] [address] [place] [address] Reese Lomax MD 3 [facility] [address] [place] [address] 08/19/2025 1:[address] ENGINEER Office Visit [facility] [address] [address] Guy Gould DO 3 [facility] [address] [place], [place] [address] Health Maintenance Due Date Last Done Comments Annual Physical 1971 Hepatitis C 1986 DTaP, Tdap and Td Vaccines ( 1 - Tdap) 1987 Hepatitis B Vaccines (1 of 3 - 19+ 3-dose series) 1987 Pneumococcal Vaccine: 50+ Years (1 of 1 - PCV) 2018 Zoster Vaccines (1 of 2) 2018 PHQ-2 (Physician [place]) 09/19/2024 12/09/2023 COVID-19 Vaccine (2 - 2024-2 6 season) 2025 04/04/2021 Colorectal Cancer Screening Colonoscopy (10 Years) 01/19/2034 [...] 1:21 PM 11/11/2020 7:[address] [employer] Law Clerk Relationship Specialty Start Date End Date Heydi Chand PA [address] [address] PCP - General PHYSICIAN CHARTER PILOT 05/07/22 Segun Coker MD [address] [address] [place] Assistant Prosecuting Attorney CARDIOVASCULAR DISEASE 07/20/17
--- OUTSIDE RECORDS SUMMARY | 2025-06-17 11:14 | XMS_ITS | Encounter Summary ---
Author Organization [facility] Address [facility] [place] [address] Care Team Providers Care Plumbing Designer Name Role Phone Wang Barth MD Primary Care Provider [phone] Segun Coker MD Unavailable [phone] Heydi Chand Primary Care Provider [phone] Encounter Details Date Type Department Care Team (Late st Contact Info) Description 11/17/2020 Abstract [facility] [address] Ousmane Carlson MA Social History Tobacco Use [...] COVID-19? No / Unsure 11/11/2020 11:02 AM ORTHOPHOTO TECH/DRAFTSMAN documented as of this encounter Plan of Treatment Upcoming Encounters Date Type Department Care Team (Late st Contact Info) Description 07/29/2025 8:00 AM ORTHOPHOTO TECH/DRAFTSMAN Appointment [address] [address] [facility] [place] [address] Reese Lomax MD [address] [facility] [address] [place] [address] 08/08/2025 9:30 AM ORTHOPHOTO TECH/DRAFTSMAN Office Visit [facility] [address] [facility] [address] [place] [address] Reese Lomax MD [address] [facility] [address] [place] [address] 08/19/2025 1:20 PM ORTHOPHOTO TECH/DRAFTSMAN Office Visit [facility] [address] [address] Guy Gould DO [address] [place] [address] documented as of this encounter Procedures Procedure [...] documented as of this encounter Care Teams Plumbing Designer Relationship Specialty Start Date End Date Wang Barth MD PCP - General INTERNAL MEDICINE 07/11/17 05/06/22 Heydi Chand PA [facility]. [facility] [address] [place] [address] PCP - General PHYSICIAN HEEL SCORER 05/07/22 Segun Coker MD [facility]. [facility] [address] [place] [address] [place] Chemical Recovery Operator CARDIOVASCULAR DISEASE 07/20/17 documented as of this encounter
--- OUTSIDE RECORDS SUMMARY | 2025-06-17 11:14 | XMS_ITS | Encounter Summary ---
Author Organization [facility] Address Critical access hospital6 [place] [address] Care Team Providers Care Movie Stunt Performer Name Role Phone Wang Barth MD Primary Care Provider [phone] Segun Coker MD Unavailable [phone] Heydi Chand Primary Care Provider [phone] Encounter Details Date Type Department Care Team (Late st Contact Info) Description 11/10/[address] [facility] [address] [facility] [place] [address] Zion Hampton MD Three [facility]. [address] [place] [address] Social History Tobacco Use Types [...] COVID-19? No / Unsure 11/11/2020 11:02 AM SENIOR DEVELOPER documented as of this encounter Plan of Treatment Upcoming Encounters Date Type Department Care Team (Late st Contact Info) Description 07/29/2025 8:00 AM SENIOR DEVELOPER [facility] [address] [facility] [place] [address] Reese Lomax MD [address] [facility] [place] [address] 08/08/2025 9:30 AM SENIOR DEVELOPER Office Visit [facility] [address] [facility] [address] [place] [address] Reese Lomax MD [address] [facility] [place] [address] 08/19/2025 1:20 PM SENIOR DEVELOPER Office Visit [facility] [address] [phone] Guy Gould DO [address] [facility] [address] [place], [place] [address] documented as of this encounter Visit Diagnoses Not on filedocumented in this encounter Additional Health Concerns Infection Onset Date Last Indicated Resolved Time COVID-19 Rule Out 01/30/2022 01/30/2022 01/30/2022 8:45 PM CDT documented as of this encounter Care Teams Movie Stunt Performer Relationship Specialty Start Date End Date Wang Barth MD PCP - General INTERNAL MEDICINE 07/11/17 05/06/22 Heydi Chand PA Three [facility]. [address] [place] [address] PCP - General PHYSICIAN AGRICULTURE INSTRUCTOR 05/07/22 Segun Coker MD Three [facility]. [address] [address] [place] Tappet Adjuster CARDIOVASCULAR DISEASE 07/20/17 documented as of this encounter
--- OUTSIDE RECORDS SUMMARY | 2025-06-17 11:14 | XMS_ITS | Encounter Summary ---
Author Organization [facility] Address [facility] [place] [address] Care Team Providers Care Electronic Die Maker Name Role Phone Segun Coker MD Unavailable [phone] Heydi Chand Primary Care Provider [phone] Encounter Details Date Type Department Care Team (Late Contact Info) Description 06/15/2022 Abstract [facility] THREE [facility], [address] [id number] Ousmane Carlson MA Social History Tobacco Use [...] (Late Contact Info) Description 07/29/2025 8:00 AM EMT/PARAMEDIC Appointment [place] [address] [facility] [place] [address] Reese Lomax MD [address] [facility] [address] [place] [address] 08/08/2025 9:30 AM EMT/PARAMEDIC Office Visit [facility] [address] [facility] [address] [place] [address] Reese Lomax MD 3 [facility] [address] [place] [address] 08/19/2025 1:20 PM EMT/PARAMEDIC Office Visit [facility] [address] [address] Guy Gould DO 3 [facility] [address] [place] [address] documented as of this encounter Procedures Procedure Name Priority Date/Time Associated Diagnosis Comments LIPID PANEL Routine 11/25/2021 THYROID STIM HORMONE TSH Routine 11/25/2021 VITAMIN D, 25 OH Routine 11/25/2021 documented in this encounter Results * VITAMIN D, 25 OH (11/25/2021) [facility] VITAMIN D 25 HYDROXY S/P/B 28 11/25/2021 us Doc [facility] Abstract LABORATORY Final Result * LIPID PANEL (11/25/2021) [facility] CHOLESTEROL 195 TRIGLYCERIDES 163 HDL 42 LDL (CALCULATED) 125 NON HDL CHOLESTEROL 153 us Doc [facility] Abstract LABORATORY Final Result * THYROID STIM HORMONE, TSH (11/25/2021) TSH 3.92 us Doc [facility] Abstract LABORATORY Final Result documented in this encounter Visit Diagnoses Not on filedocumented in this encounter Care Teams Electronic Die Maker Relationship Specialty Start Date End Date Heydi Chand PA [facility]. [facility] [address] [place] [address] PCP - General PHYSICIAN FITNESS LEADER 05/07/22 Segun Coker MD [facility]. [facility] [address] [place] [address] Mable Python Developer CARDIOVASCULAR DISEASE 07/20/17 documented as of this encounter
== END 2025-06-17 10:39 | disposition home or self-care (01) ==
PROVIDERS: PCP Physician Assistant Medical; Visit Provider Internal Medicine Hematology & Oncology
DX: D72.829 Elevated white blood cell count, unspecified (principal)
CPT/HCPCS: 36415; 85025

== ENCOUNTER 2025-08-12 14:15 | Outpatient (RCR) | payer BC, SELFPAY ==
--- NOTE | 2025-06-07 15:26 | PTOPEVAL1 ---
Assessment and note entered by Joselin Prince, PT Evaluation Information Assessment Status Evaluation Diagnosis Other instability left knee ICD-10 Condition Codes (PT) Pain in left knee M25.562 Subjective Information Pt reports left knee pain a couple years but flared up about 6 weeks ago. Was on the concrete fixing his mower and twisted his knee and has pain on the inside of the knee. Was using naproxen, and pain is better but still has cracking and pain in the morning and walking on unstable surfaces can feel like it is going to give out. Is modifying his stairs. crossing leg over opposite knee increases pain. Feels resistance with movement. Reported Pain Level Pain Score 3: Self Report Assessment PT Clinical Summary Pt presents with complaints of left knee pain that is chronic in nature however increased about six weeks ago when he twisted it working on his mower. Initial pain reports was 8-9/10 but after naproxen use, pain now ranges from 0-5/10. States he also feels unstable when walking on unstable surfaces which he does for his work in [employer] Report of injury and presentation suggestive of medial meniscal tear. Discussed with patient conservative therapy prior to imaging and ortho referral as would likely need to complete a round of therapy for insurance purposes prior to further intervention. Thus with focus on reducing inflammation, improving ROM, and improving stability for functional use, we will perform a short round of therapy and assess progress with this prior to moving on to further interventions. Plan of Care Interventions Electrical Stimulation,Gait Training,Hot Pack/Cold Pack,Manual Therapy,Neuro Re-education,Patient/ Caregiver Education,Therapeutic Activities, Therapeutic Exercise,Self-Care/Home Management, Ultrasound,Other Other Interventions Taping, Bracing PT Services Indicated Yes Treatment Frequency and 2x weekly x 8 visits Duration These treatments will address the objective and functional deficits as defined above. The patient will be advanced safely and appropriately in order for the patient to progress towards his/her prior level of function. Additional exercises will be introduced and as well as a comprehensive home exercise program upon discharge, if needed, ?to ensure carryover of functional gains achieved in the clinic. This treatment plan has been reviewed and agreement upon by the patient.
--- NOTE | 2025-06-07 15:27 | OPREHPOC ---
Outpatient Therapy Plan of Care This is a Multidisciplinary Plan of Care that may contain components documented by all disciplines (PT, OT, and ST.) PT Problem 1 PT Problem #1 Knowledge Deficit PT Goal 1 Goal / Goal Update Pt will be independent in HEP Pt will verbalize understanding of diagnosis and prognosis Target Visit 8 PT Problem 2 PT Problem #2 Pain PT Goal 1 Goal / Goal Update Pt will report greatest pain level at 3/10 or less to improve ADLs and activities Target Visit 4 PT Goal 2 Goal / Goal Update Pt will report resolution of pain to return to PLOF Target Visit 8 PT Problem 3 PT Problem #3 Impaired Gait PT Goal 1 Goal / Goal Update Pt will demonstrate normalized gait on flat level surface without pain. Target Visit 4 PT Goal 2 Goal / Goal Update Pt will report ability to ambulate on grassy surfaces without instability feeling Target Visit 8
--- NOTE | 2025-07-02 15:20 | PTOPPROG ---
Assessment and note entered by Joselin Prince, PT Evaluation Information Assessment Status Progress Diagnosis Other instability left knee ICD-10 Condition Codes (PT) Pain in left knee M25.562 Subjective Information Pt reports knee is looser than it was, is not 100% yet but is better than it was. Has not returned to doing stairs normally yet. Crossing leg over opposite is better, a lot easier to tie shoe now than was when coming in to start therapy. Walking on unstable surfaces is sire but doesn't feel unstable anymore. Was able to go out deer hunting in the [place] and get up and down from tree stand without issue. Has knelt on it with kneeling weight and was able to for a short time, but hasn't done a long period yet. Feels 75-80% improved. Assessment PT Clinical Summary Pt has attended therapy consistently for left knee pain after injury. Pt shows significant improvement in range, pain reports, gait, and in reported function. He also reports feeling 75-80% improved though has not returned to normal yet. Evaluation today continues to show L LE weakness in the quads and hamstrings compared to RLE, pt will benefit from continued therapy with increased focus on strengthening and return to 100% normalized function. Plan of Care Interventions Electrical Stimulation,Gait Training,Hot Pack/Cold Pack,Manual Therapy,Neuro Re-education,Patient/ Caregiver Education,Therapeutic Activities, Therapeutic Exercise,Self-Care/Home Management, Ultrasound,Other Other Interventions Taping, Bracing PT Services Indicated Yes Treatment Frequency and 1x weekly x 6 visits Duration These treatments will address the objective and functional deficits as defined above. The patient will be advanced safely and appropriately in order for the patient to progress towards his/her prior level of function. Additional exercises will be introduced and as well as a comprehensive home exercise program upon discharge, if needed, ?to ensure carryover of functional gains achieved in the clinic. This treatment plan has been reviewed and agreement upon by the patient.
--- NOTE | 2025-07-30 13:26 | PCPTNOTE ---
Patient called & cancelled scheduled appointment this date due to being too busy at work.
--- NOTE | 2025-08-12 14:42 | PTOPDC ---
Assessment and note entered by Joselin Prince, PT Evaluation Information Assessment Status Discharge Diagnosis Other instability left knee ICD-10 Condition Codes (PT) Pain in left knee M25.562 Subjective Information Reports climbed up and down ladder stands for deer hunting and had no difficulty. States he is feeling great. Has been able to do all his work activities with no increased pain. Feels 99% improved Has been without pain about a month. Only questionable part is leading up the stairs with the right knee, reports feels stiffer but not painful Reported Pain Level Pain Score 0: Self Report Assessment PT Clinical Summary Pt reports today feeling 99% improved overall. He does not remember the last time he had pain in the knee. States he was able to go up and down ladders this weekend without any increased pain. Pt has met all therapy goals, demonstrates no gait abnormalities on smooth surface or with stairs. Pt has been educated on maintenance HEP and when to return to MD or therapy in the future if needed . Thus patient is being discharged from services for completion of POC. Plan of Care PT Services Indicated No
== END 2025-08-12 14:59 | disposition home or self-care (01) ==
LOC: ANHHIPT 14:15
PROVIDERS: PCP Physician Assistant Medical; Visit Provider Physician Assistant Medical
DX: M25.362 Other instability, left knee (principal); M25.562 Pain in left knee
CPT/HCPCS: 97014; 97035; 97110; 97112; 97161; 97530; 97750; G0283